=== PATIENT | male | born 1955 | race Caucasian/White ===

== ENCOUNTER 2019-05-01 01:00 | Inpatient (IN) ==
[2019-05-01] MEDS ORDERED: DEXTROSE 10% 250 ML BAG IV STA (01:38)
[2019-05-01] MEDS ORDERED: DEXTROSE 10% 250 ML IV ONE (01:39)
[2019-05-01 02:50] LABS: Basophils % 0.2 % (0.0-0.8); Eosinophils # 0.1 10*3/uL (0.0-0.87); Eosinophils % 0.5 % (0.00-10.9); Hematocrit 29.3 VOL% (42.0-52.0); Immature Granulocytes % 1.8 %; Lymphocytes # 0.6 10*3/uL (1.4-4.0); Lymphocytes % 3.5 % (21.2-54.2); Mean Corpuscular HGB Conc 30.7 GM/DL (32-36); Mean Corpuscular Volume 84.7 FL (87-102); Mean Platelet Volume 9.1 FL (9.6-12.0); Platelet Count 443 T/CUMM (130-400); Red Blood Count 3.46 MC/CUMM (3.8-5.5); White Blood Count 16.5 T/CUMM (4-12)
[2019-05-01] MEDS ORDERED: VANCOMYCIN INJ 1,500 MG in SODIUM CHLORIDE 0.9% 500 ML IV STA (02:59)
[2019-05-01] MEDS ORDERED: CEFEPIME 2,000 MG in SODIUM CHLORIDE 0.9% 100 ML IV STA (02:59)
[2019-05-01 03:09] LABS: Bilirubin,Total 0.7 MG/DL (0.2-1.0); Osmolality,Calculated 285.8 MOS/KG (273-304); Total Protein 6.1 G/DL (6.4-8.3)
[2019-05-01] MEDS ORDERED: ASPIRIN CHEW 81 MG TABLET PO STA (03:15)
[2019-05-01] MEDS ORDERED: CEFEPIME 2,000 MG VIAL ONE (03:20)
[2019-05-01] MEDS ORDERED: VANCOMYCIN 1,000 MG VIAL ONE ×2 (03:20→03:21)
[2019-05-01] MEDS ORDERED: SODIUM CHLORIDE 0.9% 100 ML IV ONE (03:21)
[2019-05-01 03:27] LABS: PT Patient Result 11.1 SECS (9.6-12.2); Partial Thromboplastin Time 26.9 SECS (20.8-36.0)
[2019-05-01] MEDS ORDERED: GLUCAGON 1 MG VIAL IM PRN (03:34)
[2019-05-01 03:36] LABS: Eosinophils 1 % (0-10); Lymphocytes 4 % (20-55); Segmented Neutrophils 90 % (50-85); Total Cells Counted 100
[2019-05-01] MEDS ORDERED: DEXTROSE 10% 250 ML BAG IV PRN (03:36)
[2019-05-01 03:37] LABS: Anisocytosis Slight; Macrocytosis Slight; Platelet Estimate Increased
[2019-05-01] MEDS ORDERED: VANCOMYCIN INJ 2,000 MG in SODIUM CHLORIDE 0.9% 500 ML IV ONE (04:00)
[2019-05-01] MEDS ORDERED: SODIUM CHLORIDE 0.9% 250 ML IV STA (04:36)
[2019-05-01] MEDS ORDERED: SODIUM CHLOR 0.9% KCL 20 MEQ 20 MEQ/1,000 ML BAG IV SCH (07:30)
[2019-05-01 07:33] LABS: Apearance,Urine CLEAR (Clear); Bacteria,Urine Occasional /HPF (Few); Bilirubin,Urine Negative (Negative); Blood, Urine Negative (Negative); Glucose,Urine (UA) Negative (Negative); Hyaline Casts,Urine 1 /LPF (0-3); Ketones,Urine Negative (Negative); Mucus,Urine Occasional /LPF (Occasional); Nitrite,Urine Negative (Negative); Protein,Urine Negative; RBC,Urine 1 /HPF (0-4); Squamous Epithelial Cell,Urine Occasional /HPF (0-10); Urine Color Yellow (Yellow); Urine Specific Gravity 1.011 (1.001-1.035); WBC,Urine <1 /HPF (0-6)
[2019-05-01] MEDS ORDERED: MAGNESIUM HYDROXIDE SUSP 30 ML UDCUP PO PRN (07:39)
[2019-05-01] MEDS ORDERED: ACETAMINOPHEN 325 MG TABLET PO PRN (07:39)
[2019-05-01] MEDS ORDERED: ONDANSETRON 4 MG/2 ML VIAL IV PRN (07:39)
[2019-05-01] MEDS ORDERED: DEXTROSE 50% 25 GM/50 ML VIAL IV PRN (07:39)
[2019-05-01] MEDS: PANTOPRAZOLE 40 MG TABLET PO SCH (09:03)
[2019-05-01] MEDS: DOCUSATE SODIUM 100 MG CAPSULE PO SCH ×2 (09:03→20:22)
[2019-05-01] MEDS: POTASSIUM CHLORIDE RIDER 10 MEQ in PREMIX 1 EACH IV SCH ×2 (09:04→11:25)
[2019-05-01] MEDS: MEROPENEM 500 MG in SODIUM CHLORIDE 0.9% 100 ML IV SCH ×2 (09:04→16:37)
[2019-05-01] MEDS: SODIUM CHLORIDE 0.9% 1,000 ML IV SCH ×2 (11:28→15:53)
[2019-05-01] MEDS ORDERED: MEROPENEM 1,000 MG in SODIUM CHLORIDE 0.9% 100 ML IV SCH (12:00)
[2019-05-01] MEDS ORDERED: MEROPENEM 500 MG in SODIUM CHLORIDE 0.9% 100 ML IV SCH (12:00)
[2019-05-01] MEDS: INSULIN LISPRO 100 UNIT/ML SUBCUT SCH ×2 (13:38→16:38)
[2019-05-01] MEDS: FUROSEMIDE 40 MG TABLET PO SCH (16:37)
[2019-05-01] MEDS: carvediloL 6.25 MG TABLET PO SCH (20:22)
[2019-05-01] MEDS: AMIODARONE 200 MG TABLET PO SCH (20:22)
[2019-05-01] MEDS: GABAPENTIN 100 MG CAPSULE PO SCH (20:22)
[2019-05-01] MEDS ORDERED: lisinopriL 2.5 MG TABLET PO SCH (21:00)
[2019-05-01] MEDS: INSULIN GLARGINE 100 UNIT/ML SUBCUT SCH (21:40)
[2019-05-02] MEDS: MEROPENEM 500 MG in SODIUM CHLORIDE 0.9% 100 ML IV SCH ×4 (00:19→23:29)
[2019-05-02] MEDS ORDERED: VANCOMYCIN INJ 1,250 MG in SODIUM CHLORIDE 0.9% 250 ML IV SCH (04:00)
[2019-05-02] MEDS: SODIUM CHLORIDE 0.9% 1,000 ML IV SCH ×2 (04:47)
[2019-05-02 05:50] LABS: Basophils % 0.2 % (0.0-0.8); Eosinophils # 0.4 10*3/uL (0.0-0.87); Eosinophils % 2.6 % (0.00-10.9); Hematocrit 29.5 VOL% (42.0-52.0); Hemoglobin 9.2 GM/DL (14.0-18.0); Immature Granulocytes % 2.5 %; Immature Granulocytes Absolute 0.42 #; Lymphocytes # 0.9 10*3/uL (1.4-4.0); Lymphocytes % 5.6 % (21.2-54.2); Mean Corpuscular HGB Conc 31.2 GM/DL (32-36); Mean Corpuscular Volume 83.3 FL (87-102); Mean Platelet Volume 9.6 FL (9.6-12.0); Monocytes % 7.6 % (1.7-12.7); Neutrophils % 81.5 % (38.7-73.9); Platelet Count 489 T/CUMM (130-400); Red Blood Count 3.54 MC/CUMM (3.8-5.5); Red Cell Distribution Width 15.4 % (9.3-17.3); White Blood Count 16.7 T/CUMM (4-12)
[2019-05-02] MEDS: INSULIN LISPRO 100 UNIT/ML SUBCUT SCH ×5 (05:55→20:27)
[2019-05-02 06:11] LABS: Risk Ratio 6.21
[2019-05-02 06:17] LABS: Albumin 2.1 G/DL (3.4-5.0); Calcium 8.2 MG/DL (8.5-10.1); Osmolality,Calculated 287.7 MOS/KG (273-304); Total Protein 5.8 G/DL (6.4-8.3)
[2019-05-02] MEDS ORDERED: SIMVASTATIN 40 MG TABLET PO SCH (09:00)
[2019-05-02] MEDS: AMIODARONE 200 MG TABLET PO SCH ×2 (09:17→20:26)
[2019-05-02] MEDS: PRASUGREL 10 MG TABLET PO SCH (09:17)
[2019-05-02] MEDS: carvediloL 6.25 MG TABLET PO SCH ×2 (09:17→20:26)
[2019-05-02] MEDS: FUROSEMIDE 40 MG TABLET PO SCH ×2 (09:17→16:57)
[2019-05-02] MEDS: ASPIRIN CHEW 81 MG TABLET PO SCH (09:17)
[2019-05-02] MEDS: PANTOPRAZOLE 40 MG TABLET PO SCH (09:17)
[2019-05-02] MEDS: DOCUSATE SODIUM 100 MG CAPSULE PO SCH ×2 (09:18→20:26)
[2019-05-02] MEDS: GABAPENTIN 100 MG CAPSULE PO SCH (20:26)
[2019-05-02] MEDS: INSULIN GLARGINE 100 UNIT/ML SUBCUT SCH (20:26)
[2019-05-03 06:04] LABS: Basophils % 0.3 % (0.0-0.8); Eosinophils # 0.4 10*3/uL (0.0-0.87); Eosinophils % 2.4 % (0.00-10.9); Hematocrit 27.8 VOL% (42.0-52.0); Hemoglobin 8.7 GM/DL (14.0-18.0); Immature Granulocytes % 2.5 %; Immature Granulocytes Absolute 0.38 #; Lymphocytes # 0.7 10*3/uL (1.4-4.0); Lymphocytes % 4.4 % (21.2-54.2); Mean Corpuscular HGB Conc 31.3 GM/DL (32-36); Mean Corpuscular Volume 84.2 FL (87-102); Mean Platelet Volume 9.5 FL (9.6-12.0); Monocytes % 6.5 % (1.7-12.7); Neutrophils % 83.9 % (38.7-73.9); Platelet Count 486 T/CUMM (130-400); Red Cell Distribution Width 15.6 % (9.3-17.3); White Blood Count 15.1 T/CUMM (4-12)
[2019-05-03] MEDS: LEVOTHYROXINE 75 MCG TABLET PO SCH (06:12)
[2019-05-03 06:22] LABS: Calcium 8.3 MG/DL (8.5-10.1); Osmolality,Calculated 284.8 MOS/KG (273-304)
[2019-05-03 06:55] LABS: Eosinophils 1 % (0-10); Hypochromasia 1+; Lymphocytes 5 % (20-55); Platelet Estimate Adequate; Segmented Neutrophils 85 % (50-85); Total Cells Counted 100
[2019-05-03] MEDS: INSULIN LISPRO 100 UNIT/ML SUBCUT SCH ×4 (09:29→22:36)
[2019-05-03] MEDS: MEROPENEM 500 MG in SODIUM CHLORIDE 0.9% 100 ML IV SCH ×2 (09:32→15:05)
[2019-05-03] MEDS: FUROSEMIDE 40 MG TABLET PO SCH ×2 (09:32→15:06)
[2019-05-03] MEDS: ASPIRIN CHEW 81 MG TABLET PO SCH (09:33)
[2019-05-03] MEDS: AMIODARONE 200 MG TABLET PO SCH ×2 (09:33→22:33)
[2019-05-03] MEDS: PANTOPRAZOLE 40 MG TABLET PO SCH (09:33)
[2019-05-03] MEDS: PRASUGREL 10 MG TABLET PO SCH (09:33)
[2019-05-03] MEDS: DOCUSATE SODIUM 100 MG CAPSULE PO SCH ×2 (09:33→22:33)
[2019-05-03] MEDS: carvediloL 6.25 MG TABLET PO SCH ×2 (09:34→22:36)
[2019-05-03] MEDS: ENOXAPARIN 30 MG/0.3 ML SYRINGE SUBCUT SCH (09:34)
[2019-05-03] MEDS ORDERED: SIMVASTATIN 40 MG TABLET PO SCH (21:00)
[2019-05-03] MEDS: GABAPENTIN 100 MG CAPSULE PO SCH (22:34)
[2019-05-03] MEDS: INSULIN GLARGINE 100 UNIT/ML SUBCUT SCH (22:36)
[2019-05-04] MEDS: MEROPENEM 500 MG in SODIUM CHLORIDE 0.9% 100 ML IV SCH ×3 (01:23→17:04)
[2019-05-04 05:22] LABS: Basophils % 0.2 % (0.0-0.8); Eosinophils # 0.2 10*3/uL (0.0-0.87); Eosinophils % 1.2 % (0.00-10.9); Hematocrit 28.8 VOL% (42.0-52.0); Immature Granulocytes % 2.6 %; Immature Granulocytes Absolute 0.45 #; Lymphocytes # 1.1 10*3/uL (1.4-4.0); Lymphocytes % 6.3 % (21.2-54.2); Mean Corpuscular HGB Conc 31.3 GM/DL (32-36); Mean Corpuscular Volume 82.8 FL (87-102); Mean Platelet Volume 9.5 FL (9.6-12.0); Monocytes % 7.8 % (1.7-12.7); Neutrophils % 81.9 % (38.7-73.9); Platelet Count 522 T/CUMM (130-400); Red Blood Count 3.48 MC/CUMM (3.8-5.5); Red Cell Distribution Width 15.8 % (9.3-17.3); White Blood Count 17.1 T/CUMM (4-12)
[2019-05-04 05:40] LABS: Albumin 1.7 G/DL (3.4-5.0); Calcium 8.3 MG/DL (8.5-10.1); Osmolality,Calculated 281.8 MOS/KG (273-304); Total Protein 6.1 G/DL (6.4-8.3)
[2019-05-04] MEDS: LEVOTHYROXINE 75 MCG TABLET PO SCH (06:25)
[2019-05-04] MEDS ORDERED: LEVOFLOXACIN INJ 750 MG in PREMIX 1 EACH IV ONE (08:06)
[2019-05-04 09:55] LABS: Hepatitis B Core IgM Quant 0.08 Index; Hepatitis B Surface Ag Quant 0.16 Index; Hepatitis B Surface Ag Result Negative (Negative); Hepatitis C Virus Ab Quant 0.06 Index; Hepatitis C Virus Ab Result Negative (Negative)
[2019-05-04] MEDS: DOCUSATE SODIUM 100 MG CAPSULE PO SCH ×2 (10:42→23:33)
[2019-05-04] MEDS: PANTOPRAZOLE 40 MG TABLET PO SCH (10:42)
[2019-05-04] MEDS: FUROSEMIDE 40 MG TABLET PO SCH ×2 (10:42→17:04)
[2019-05-04] MEDS: ASPIRIN CHEW 81 MG TABLET PO SCH (10:42)
[2019-05-04] MEDS: AMIODARONE 200 MG TABLET PO SCH ×2 (10:42→23:32)
[2019-05-04] MEDS: PRASUGREL 10 MG TABLET PO SCH (10:42)
[2019-05-04] MEDS: INSULIN LISPRO 100 UNIT/ML SUBCUT SCH ×4 (10:43→20:55)
[2019-05-04] MEDS: ENOXAPARIN 30 MG/0.3 ML SYRINGE SUBCUT SCH (10:45)
[2019-05-04] MEDS: APIXABAN 5 MG TABLET PO SCH ×2 (14:33→23:32)
[2019-05-04] MEDS: INSULIN GLARGINE 100 UNIT/ML SUBCUT SCH (20:55)
[2019-05-04] MEDS: GABAPENTIN 100 MG CAPSULE PO SCH (23:32)
[2019-05-05] MEDS: MEROPENEM 500 MG in SODIUM CHLORIDE 0.9% 100 ML IV SCH ×4 (02:18→23:46)
[2019-05-05 05:33] LABS: Basophils % 0.2 % (0.0-0.8); Eosinophils % 0.2 % (0.00-10.9); Hematocrit 28.1 VOL% (42.0-52.0); Immature Granulocytes % 2.2 %; Immature Granulocytes Absolute 0.38 #; Lymphocytes # 0.8 10*3/uL (1.4-4.0); Lymphocytes % 4.7 % (21.2-54.2); Mean Platelet Volume 9.2 FL (9.6-12.0); Monocytes % 7.5 % (1.7-12.7); Neutrophils % 85.2 % (38.7-73.9); Platelet Count 502 T/CUMM (130-400); Red Blood Count 3.47 MC/CUMM (3.8-5.5); Red Cell Distribution Width 16.1 % (9.3-17.3); White Blood Count 16.9 T/CUMM (4-12)
[2019-05-05 05:57] LABS: Calcium 7.9 MG/DL (8.5-10.1); Osmolality,Calculated 286.8 MOS/KG (273-304)
[2019-05-05 06:01] LABS: Band Neutrophils 4 % (0-10); Hypochromasia 1+; Lymphocytes 4 % (20-55); Segmented Neutrophils 84 % (50-85); Total Cells Counted 100
[2019-05-05 06:02] LABS: Microcytosis 1+
[2019-05-05] MEDS: LEVOTHYROXINE 75 MCG TABLET PO SCH (06:49)
[2019-05-05] MEDS: INSULIN LISPRO 100 UNIT/ML SUBCUT SCH ×4 (07:34→20:35)
[2019-05-05] MEDS: PRASUGREL 10 MG TABLET PO SCH (10:22)
[2019-05-05] MEDS: AMIODARONE 200 MG TABLET PO SCH ×2 (10:23→21:54)
[2019-05-05] MEDS: ASPIRIN CHEW 81 MG TABLET PO SCH (10:23)
[2019-05-05] MEDS: PANTOPRAZOLE 40 MG TABLET PO SCH (10:23)
[2019-05-05] MEDS: DOCUSATE SODIUM 100 MG CAPSULE PO SCH ×2 (10:24→20:35)
[2019-05-05] MEDS: FUROSEMIDE 40 MG TABLET PO SCH (10:24)
[2019-05-05] MEDS: LEVOFLOXACIN INJ 500 MG in PREMIX 1 EACH IV SCH (11:26)
[2019-05-05] MEDS: APIXABAN 5 MG TABLET PO SCH ×2 (12:33→21:54)
[2019-05-05] MEDS: traMADol 50 MG TABLET PO PRN (14:00)
[2019-05-05] MEDS ORDERED: SODIUM CHLORIDE 0.9% 250 ML IV ONE (16:51)
[2019-05-05] MEDS: SODIUM CHLORIDE 0.9% 1,000 ML IV SCH (17:26)
[2019-05-05] MEDS: INSULIN GLARGINE 100 UNIT/ML SUBCUT SCH (20:36)
[2019-05-05] MEDS: GABAPENTIN 100 MG CAPSULE PO SCH (21:54)
[2019-05-06 05:30] LABS: Basophils % 0.2 % (0.0-0.8); Eosinophils # 0.1 10*3/uL (0.0-0.87); Eosinophils % 0.6 % (0.00-10.9); Hematocrit 28.2 VOL% (42.0-52.0); Hemoglobin 8.7 GM/DL (14.0-18.0); Immature Granulocytes % 3.3 %; Immature Granulocytes Absolute 0.62 #; Lymphocytes % 5.4 % (21.2-54.2); Mean Corpuscular HGB Conc 30.9 GM/DL (32-36); Mean Corpuscular Volume 82.7 FL (87-102); Mean Platelet Volume 9.3 FL (9.6-12.0); Monocytes % 6.4 % (1.7-12.7); Neutrophils % 84.1 % (38.7-73.9); Platelet Count 482 T/CUMM (130-400); Red Blood Count 3.41 MC/CUMM (3.8-5.5); Red Cell Distribution Width 16.1 % (9.3-17.3)
[2019-05-06 05:50] LABS: Albumin 1.6 G/DL (3.4-5.0); Bilirubin,Total 1.2 MG/DL (0.2-1.0); Calcium 7.8 MG/DL (8.5-10.1); Osmolality,Calculated 289.8 MOS/KG (273-304); Total Protein 5.7 G/DL (6.4-8.3)
[2019-05-06] MEDS: LEVOTHYROXINE 75 MCG TABLET PO SCH (06:01)
[2019-05-06 06:06] LABS: Hypochromasia 1+; Lymphocytes 2 % (20-55); Platelet Estimate Adequate; Segmented Neutrophils 94 % (50-85); Total Cells Counted 100
[2019-05-06 06:07] LABS: Microcytosis 1+
[2019-05-06] MEDS ORDERED: FUROSEMIDE 40 MG TABLET PO SCH (09:00)
[2019-05-06] MEDS: PANTOPRAZOLE 40 MG TABLET PO SCH (10:00)
[2019-05-06] MEDS: AMIODARONE 200 MG TABLET PO SCH ×2 (10:00→21:35)
[2019-05-06] MEDS: PRASUGREL 10 MG TABLET PO SCH (10:00)
[2019-05-06] MEDS: APIXABAN 5 MG TABLET PO SCH (10:00)
[2019-05-06] MEDS: ASPIRIN CHEW 81 MG TABLET PO SCH (10:01)
[2019-05-06] MEDS: INSULIN LISPRO 100 UNIT/ML SUBCUT SCH ×4 (10:35→21:27)
[2019-05-06] MEDS: DOCUSATE SODIUM 100 MG CAPSULE PO SCH ×2 (10:36→22:53)
[2019-05-06] MEDS ORDERED: POTASSIUM CHLORIDE RIDER 10 MEQ in PREMIX 1 EACH IV PRN (11:49)
[2019-05-06] MEDS ORDERED: MAGNESIUM SULF RIDER 2 GM in PREMIX 1 EACH IV PRN (11:49)
[2019-05-06] MEDS: ACETYLCYSTEINE 600 MG CAPSULE PO SCH ×2 (13:19→21:35)
[2019-05-06] MEDS: SODIUM CHLORIDE 0.9% 1,000 ML IV SCH (13:50)
[2019-05-06] MEDS: INSULIN GLARGINE 100 UNIT/ML SUBCUT SCH (21:28)
[2019-05-06] MEDS: GABAPENTIN 100 MG CAPSULE PO SCH (21:35)
[2019-05-07 04:38] LABS: Basophils % 0.2 % (0.0-0.8); Eosinophils # 0.2 10*3/uL (0.0-0.87); Eosinophils % 0.8 % (0.00-10.9); Hematocrit 29.7 VOL% (42.0-52.0); Hemoglobin 9.2 GM/DL (14.0-18.0); Immature Granulocytes % 2.8 %; Immature Granulocytes Absolute 0.55 #; Lymphocytes # 1.1 10*3/uL (1.4-4.0); Lymphocytes % 5.6 % (21.2-54.2); Mean Corpuscular Volume 83.7 FL (87-102); Mean Platelet Volume 9.4 FL (9.6-12.0); Monocytes % 6.1 % (1.7-12.7); Neutrophils % 84.5 % (38.7-73.9); Platelet Count 473 T/CUMM (130-400); Red Blood Count 3.55 MC/CUMM (3.8-5.5); Red Cell Distribution Width 16.7 % (9.3-17.3); White Blood Count 19.7 T/CUMM (4-12)
[2019-05-07 04:47] LABS: INR 1.1; PT Patient Result 11.9 SECS (9.6-12.2)
[2019-05-07 05:06] LABS: Albumin 1.7 G/DL (3.4-5.0); Bilirubin,Total 1.4 MG/DL (0.2-1.0); Calcium 7.6 MG/DL (8.5-10.1); Osmolality,Calculated 291.7 MOS/KG (273-304); Total Protein 5.9 G/DL (6.4-8.3)
[2019-05-07 06:01] LABS: Band Neutrophils 1 % (0-10); Lymphocytes 5 % (20-55); Metamyelocytes 1 %; Segmented Neutrophils 87 % (50-85); Total Cells Counted 100
[2019-05-07 06:02] LABS: Anisocytosis 1+; Hypochromasia 1+; Platelet Estimate Normal; Target Cells 1+
[2019-05-07] MEDS ORDERED: DIAZEPAM 5 MG TABLET PO ONE (06:30)
[2019-05-07] MEDS ORDERED: diphenhydrAMINE CAP 25 MG CAPSULE PO ONE (06:30)
[2019-05-07] MEDS: INSULIN LISPRO 100 UNIT/ML SUBCUT SCH ×4 (08:00→22:36)
[2019-05-07] MEDS: LEVOFLOXACIN INJ 500 MG in PREMIX 1 EACH IV SCH (08:17)
[2019-05-07] MEDS ORDERED: LIDOCAINE 1% 20 ML VIAL ONE (08:21)
[2019-05-07] MEDS ORDERED: HEPARIN/NACL 0.9% 2 UNITS/ML 1,000 ML IV ONE (08:21)
[2019-05-07] MEDS: LEVOTHYROXINE 75 MCG TABLET PO SCH (08:24)
[2019-05-07] MEDS: AMIODARONE 200 MG TABLET PO SCH ×2 (10:33→20:45)
[2019-05-07] MEDS: PANTOPRAZOLE 40 MG TABLET PO SCH (10:33)
[2019-05-07] MEDS: DOCUSATE SODIUM 100 MG CAPSULE PO SCH ×2 (10:33→20:46)
[2019-05-07] MEDS: ACETYLCYSTEINE 600 MG CAPSULE PO SCH ×2 (10:33→20:45)
[2019-05-07] MEDS: ASPIRIN CHEW 81 MG TABLET PO SCH (10:33)
[2019-05-07] MEDS: PRASUGREL 10 MG TABLET PO SCH (10:34)
[2019-05-07] MEDS: SODIUM CHLORIDE 0.9% 1,000 ML IV SCH (10:35)
[2019-05-07] MEDS: APIXABAN 2.5 MG TABLET PO SCH (20:45)
[2019-05-07] MEDS: GABAPENTIN 100 MG CAPSULE PO SCH (20:45)
[2019-05-07] MEDS: INSULIN GLARGINE 100 UNIT/ML SUBCUT SCH (22:36)
[2019-05-08] MEDS: LEVOTHYROXINE 75 MCG TABLET PO SCH (06:42)
[2019-05-08 06:50] LABS: Basophils % 0.2 % (0.0-0.8); Eosinophils # 0.1 10*3/uL (0.0-0.87); Eosinophils % 0.8 % (0.00-10.9); Hematocrit 28.2 VOL% (42.0-52.0); Hemoglobin 8.9 GM/DL (14.0-18.0); Immature Granulocytes % 2.6 %; Immature Granulocytes Absolute 0.47 #; Lymphocytes # 1.1 10*3/uL (1.4-4.0); Lymphocytes % 6.1 % (21.2-54.2); Mean Corpuscular HGB Conc 31.6 GM/DL (32-36); Mean Platelet Volume 9.4 FL (9.6-12.0); Monocytes % 5.9 % (1.7-12.7); NRBC # 0.02 10*3/uL; Neutrophils % 84.4 % (38.7-73.9); Platelet Count 449 T/CUMM (130-400); Red Blood Count 3.48 MC/CUMM (3.8-5.5); Red Cell Distribution Width 16.8 % (9.3-17.3); White Blood Count 17.8 T/CUMM (4-12)
[2019-05-08 07:22] LABS: Albumin 1.5 G/DL (3.4-5.0); Bilirubin,Total 1.5 MG/DL (0.2-1.0); Calcium 7.9 MG/DL (8.5-10.1); Osmolality,Calculated 289.7 MOS/KG (273-304); Total Protein 5.8 G/DL (6.4-8.3)
[2019-05-08] MEDS: INSULIN LISPRO 100 UNIT/ML SUBCUT SCH ×4 (09:43→21:32)
[2019-05-08] MEDS: PANTOPRAZOLE 40 MG TABLET PO SCH (09:43)
[2019-05-08] MEDS: ASPIRIN CHEW 81 MG TABLET PO SCH (09:43)
[2019-05-08] MEDS: AMIODARONE 200 MG TABLET PO SCH ×2 (09:43→21:31)
[2019-05-08] MEDS: APIXABAN 2.5 MG TABLET PO SCH ×2 (09:43→21:31)
[2019-05-08] MEDS: PRASUGREL 10 MG TABLET PO SCH (09:44)
[2019-05-08] MEDS: DOCUSATE SODIUM 100 MG CAPSULE PO SCH ×2 (09:44→21:32)
[2019-05-08] MEDS: SODIUM CHLORIDE 0.9% 1,000 ML IV SCH (09:47)
[2019-05-08] MEDS: GABAPENTIN 100 MG CAPSULE PO SCH (21:31)
[2019-05-08] MEDS: INSULIN GLARGINE 100 UNIT/ML SUBCUT SCH (21:32)
[2019-05-08] MEDS: traMADol 50 MG TABLET PO PRN (21:33)
[2019-05-09] MEDS: SODIUM CHLORIDE 0.9% 1,000 ML IV SCH (03:17)
[2019-05-09 05:53] LABS: Calcium 7.8 MG/DL (8.5-10.1); Osmolality,Calculated 288.4 MOS/KG (273-304)
[2019-05-09] MEDS: LEVOTHYROXINE 75 MCG TABLET PO SCH (05:54)
[2019-05-09] MEDS: INSULIN LISPRO 100 UNIT/ML SUBCUT SCH ×4 (09:15→20:42)
[2019-05-09] MEDS: AMIODARONE 200 MG TABLET PO SCH ×2 (09:41→20:41)
[2019-05-09] MEDS: ASPIRIN CHEW 81 MG TABLET PO SCH (09:41)
[2019-05-09] MEDS: FUROSEMIDE 40 MG TABLET PO SCH ×2 (09:41→16:50)
[2019-05-09] MEDS: APIXABAN 5 MG TABLET PO SCH ×2 (09:41→20:41)
[2019-05-09] MEDS: LEVOFLOXACIN INJ 500 MG in PREMIX 1 EACH IV SCH (09:42)
[2019-05-09] MEDS: DOCUSATE SODIUM 100 MG CAPSULE PO SCH ×3 (09:42→20:43)
[2019-05-09] MEDS: PANTOPRAZOLE 40 MG TABLET PO SCH (09:42)
[2019-05-09] MEDS: INSULIN GLARGINE 100 UNIT/ML SUBCUT SCH (20:40)
[2019-05-09] MEDS: GABAPENTIN 100 MG CAPSULE PO SCH (20:41)
[2019-05-10 05:28] LABS: Basophils # 0.1 10*3/uL (0.0-0.2); Basophils % 0.3 % (0.0-0.8); Eosinophils # 0.6 10*3/uL (0.0-0.87); Eosinophils % 3.9 % (0.00-10.9); Hemoglobin 9.8 GM/DL (14.0-18.0); Immature Granulocytes Absolute 0.83 #; Lymphocytes # 1.2 10*3/uL (1.4-4.0); Lymphocytes % 7.1 % (21.2-54.2); Mean Corpuscular HGB Conc 30.6 GM/DL (32-36); Mean Corpuscular Volume 82.7 FL (87-102); Mean Platelet Volume 9.3 FL (9.6-12.0); Monocytes % 5.2 % (1.7-12.7); NRBC # 0.02 10*3/uL; Neutrophils % 78.5 % (38.7-73.9); Platelet Count 475 T/CUMM (130-400); Red Blood Count 3.87 MC/CUMM (3.8-5.5); Red Cell Distribution Width 16.8 % (9.3-17.3); White Blood Count 16.6 T/CUMM (4-12)
[2019-05-10 05:51] LABS: Calcium 7.9 MG/DL (8.5-10.1); Osmolality,Calculated 292.1 MOS/KG (273-304)
[2019-05-10 05:52] LABS: Eosinophils 6 % (0-10); Hypochromasia 1+; Lymphocytes 9 % (20-55); Platelet Estimate Adequate; Segmented Neutrophils 81 % (50-85); Total Cells Counted 100
[2019-05-10 05:54] LABS: Albumin 1.8 G/DL (3.4-5.0); Bilirubin,Direct 0.89 MG/DL (0.0-0.20); Bilirubin,Indirect 0.7 MG/DL (0.0-1.0); Bilirubin,Total 1.6 MG/DL (0.2-1.0); Total Protein 6.1 G/DL (6.4-8.3)
[2019-05-10] MEDS: LEVOTHYROXINE 75 MCG TABLET PO SCH (06:31)
[2019-05-10] MEDS: AMIODARONE 200 MG TABLET PO SCH ×2 (08:11→20:51)
[2019-05-10] MEDS: DOCUSATE SODIUM 100 MG CAPSULE PO SCH ×2 (08:11→20:50)
[2019-05-10] MEDS: FUROSEMIDE 40 MG TABLET PO SCH (08:11)
[2019-05-10] MEDS: APIXABAN 5 MG TABLET PO SCH ×2 (08:11→20:51)
[2019-05-10] MEDS: PANTOPRAZOLE 40 MG TABLET PO SCH (08:11)
[2019-05-10] MEDS: ASPIRIN CHEW 81 MG TABLET PO SCH (08:11)
[2019-05-10] MEDS: INSULIN LISPRO 100 UNIT/ML SUBCUT SCH ×4 (09:08→20:52)
[2019-05-10] MEDS ORDERED: FUROSEMIDE 20 MG TABLET PO SCH (16:00)
[2019-05-10] MEDS ORDERED: diphenhydrAMINE CAP 25 MG CAPSULE PO PRN (20:07)
[2019-05-10] MEDS: INSULIN GLARGINE 100 UNIT/ML SUBCUT SCH (20:51)
[2019-05-10] MEDS: GABAPENTIN 100 MG CAPSULE PO SCH (20:51)
[2019-05-11 04:49] LABS: Albumin 1.6 G/DL (3.4-5.0); Bilirubin,Direct 0.78 MG/DL (0.0-0.20); Bilirubin,Indirect 1.3 MG/DL (0.0-1.0); Bilirubin,Total 2.1 MG/DL (0.2-1.0); Total Protein 5.9 G/DL (6.4-8.3)
[2019-05-11] MEDS: LEVOTHYROXINE 75 MCG TABLET PO SCH (06:13)
[2019-05-11 07:34] LABS: Calcium 7.7 MG/DL (8.5-10.1); Osmolality,Calculated 287.4 MOS/KG (273-304)
[2019-05-11] MEDS: INSULIN LISPRO 100 UNIT/ML SUBCUT SCH (07:57)
[2019-05-11] MEDS: LEVOFLOXACIN INJ 500 MG in PREMIX 1 EACH IV SCH (08:05)
[2019-05-11] MEDS: AMIODARONE 200 MG TABLET PO SCH (08:24)
[2019-05-11] MEDS: ASPIRIN CHEW 81 MG TABLET PO SCH (08:24)
[2019-05-11] MEDS: APIXABAN 5 MG TABLET PO SCH (08:24)
[2019-05-11] MEDS: PANTOPRAZOLE 40 MG TABLET PO SCH (08:24)
[2019-05-11] MEDS: DOCUSATE SODIUM 100 MG CAPSULE PO SCH (08:24)
[2019-05-11 08:52] VITALS: BP 115/68
[2019-05-11] MEDS ORDERED: FUROSEMIDE 40 MG TABLET PO SCH (09:00)
[2019-05-11] MEDS ORDERED: POTASSIUM CHLORIDE 20 MEQ TABLET PO ONE (11:36)
[2019-05-11] MEDS ORDERED: APIXABAN 2.5 MG TABLET PO SCH (21:00)
[2019-05-12] MEDS ORDERED: AMIODARONE 200 MG TABLET PO SCH (09:00)
[2019-05-12] MEDS ORDERED: POTASSIUM CHLORIDE 20 MEQ TABLET PO SCH (09:00)
[2019-05-12 13:16] LABS: Smooth Muscle Antibody Negative (Negative)
[2019-05-12 13:56] LABS: Mitochondrial Antibody (M2) <0.1 U
== END 2019-05-11 13:07 | disposition home or self-care (01) | DRG 286 ==
LOC: EDUNIT# → EDBD → N.ED 01:00 → N.EDINP 03:30 → N.TELES 04:21
PROVIDERS: ADMIT Internal Medicine; ATTEND Internal Medicine

== ENCOUNTER 2020-01-05 07:47 | Inpatient (IN) ==
[2020-01-05] MEDS ORDERED: FUROSEMIDE 40 MG/4 ML VIAL IV STA (08:24)
[2020-01-05 08:43] LABS: Basophils % 0.3 % (0.0-0.8); Eosinophils # 0.4 10*3/uL (0.0-0.87); Hematocrit 30.9 VOL% (42.0-52.0); Hemoglobin 9.6 GM/DL (14.0-18.0); Immature Granulocytes Absolute 0.14 #; Lymphocytes # 0.9 10*3/uL (1.4-4.0); Lymphocytes % 6.5 % (21.2-54.2); Mean Corpuscular HGB Conc 31.1 GM/DL (32-36); Mean Corpuscular Volume 86.8 FL (87-102); Mean Platelet Volume 9.3 FL (9.6-12.0); Monocytes % 5.1 % (1.7-12.7); Neutrophils % 84.1 % (38.7-73.9); Platelet Count 334 T/CUMM (130-400); Red Blood Count 3.56 MC/CUMM (3.8-5.5); Red Cell Distribution Width 17.4 % (9.3-17.3); White Blood Count 14.3 T/CUMM (4-12)
[2020-01-05 09:19] LABS: Albumin 2.8 G/DL (3.4-5.0); Bilirubin,Total 0.8 MG/DL (0.2-1.0); Calcium 8.5 MG/DL (8.5-10.1); Osmolality,Calculated 283.4 MOS/KG (273-304); Total Protein 7.3 G/DL (6.4-8.3)
[2020-01-05] MEDS ORDERED: DEXTROSE 50% 25 GM/50 ML VIAL IV STA (10:22)
[2020-01-05] MEDS ORDERED: GLUCAGON 1 MG VIAL IM PRN (11:30)
[2020-01-05] MEDS ORDERED: ONDANSETRON 4 MG/2 ML VIAL IV PRN (11:30)
[2020-01-05] MEDS ORDERED: ACETAMINOPHEN 325 MG TABLET PO PRN (11:30)
[2020-01-05] MEDS ORDERED: DEXTROSE 50% 25 GM/50 ML VIAL IV PRN ×2 (11:30)
[2020-01-05] MEDS ORDERED: SODIUM CHLORIDE 0.9% 1,000 ML IV SCH (13:00)
[2020-01-05] MEDS: SODIUM CHLORIDE 0.9% 1,000 ML IV SCH (14:12)
[2020-01-05] MEDS: ALBUTEROL 0.63 MG/3 ML NEB RESP TX SCH ×2 (16:10→19:25)
[2020-01-05] MEDS: FUROSEMIDE 40 MG/4 ML VIAL IV SCH (17:04)
[2020-01-05] MEDS: cefTRIAXone 500 MG in SYRINGE 1 EACH IV SCH (17:05)
[2020-01-05] MEDS: INSULIN LISPRO 100 UNIT/ML SUBCUT SCH ×2 (17:07→21:03)
[2020-01-05] MEDS ORDERED: ROSUVASTATIN 20 MG TABLET PO SCH (21:00)
[2020-01-05] MEDS: SIMVASTATIN 40 MG TABLET PO SCH (21:02)
[2020-01-05] MEDS: AMIODARONE 200 MG TABLET PO SCH (21:02)
[2020-01-05] MEDS: DOCUSATE SODIUM 100 MG CAPSULE PO SCH (21:02)
[2020-01-06] MEDS: ALBUTEROL 0.63 MG/3 ML NEB RESP TX SCH ×4 (00:45→19:46)
[2020-01-06] MEDS: SODIUM CHLORIDE 0.9% 1,000 ML IV SCH (04:51)
[2020-01-06] MEDS: PANTOPRAZOLE 40 MG TABLET PO SCH (05:45)
[2020-01-06 05:53] LABS: Basophils % 0.3 % (0.0-0.8); Eosinophils # 0.4 10*3/uL (0.0-0.87); Eosinophils % 3.1 % (0.00-10.9); Hematocrit 28.5 VOL% (42.0-52.0); Hemoglobin 8.6 GM/DL (14.0-18.0); Immature Granulocytes % 0.8 %; Lymphocytes # 1.3 10*3/uL (1.4-4.0); Lymphocytes % 9.8 % (21.2-54.2); Mean Corpuscular HGB Conc 30.2 GM/DL (32-36); Mean Corpuscular Volume 86.6 FL (87-102); Mean Platelet Volume 9.3 FL (9.6-12.0); Monocytes % 7.5 % (1.7-12.7); Neutrophils % 78.5 % (38.7-73.9); Platelet Count 284 T/CUMM (130-400); Red Blood Count 3.29 MC/CUMM (3.8-5.5); Red Cell Distribution Width 17.3 % (9.3-17.3); White Blood Count 13.2 T/CUMM (4-12)
[2020-01-06 06:14] LABS: Osmolality,Calculated 288.3 MOS/KG (273-304)
[2020-01-06 06:58] LABS: Albumin 2.3 G/DL (3.4-5.0); Bilirubin,Direct 0.23 MG/DL (0.0-0.20); Bilirubin,Indirect 0.3 MG/DL (0.0-1.0); Bilirubin,Total 0.5 MG/DL (0.2-1.0); Risk Ratio 2.55; Thyroid Stimulating Hormone 8.05 uIU/ml (0.358-3.74); Total Protein 6.9 G/DL (6.4-8.3); VLDL CHOLESTEROL 22.8 MG/DL
[2020-01-06] MEDS ORDERED: cefTRIAXone 500 MG in SYRINGE 1 EACH IV SCH (09:00)
[2020-01-06] MEDS ORDERED: FUROSEMIDE 40 MG/4 ML VIAL IV SCH (09:00)
[2020-01-06] MEDS: INSULIN LISPRO 100 UNIT/ML SUBCUT SCH ×4 (09:40→23:09)
[2020-01-06] MEDS: FUROSEMIDE 40 MG/4 ML VIAL IV SCH ×2 (09:47→16:34)
[2020-01-06] MEDS: ASPIRIN CHEW 81 MG TABLET PO SCH (09:47)
[2020-01-06] MEDS: AMIODARONE 200 MG TABLET PO SCH ×2 (09:48→22:19)
[2020-01-06] MEDS: DOCUSATE SODIUM 100 MG CAPSULE PO SCH ×2 (09:48→22:19)
[2020-01-06] MEDS: cefTRIAXone 500 MG in SYRINGE 1 EACH IV SCH (10:30)
[2020-01-06] MEDS ORDERED: LEVOTHYROXINE 25 MCG TABLET PO ONE (14:45)
[2020-01-06] MEDS: SIMETHICONE CHEW 125 MG TABLET PO PRN (14:49)
[2020-01-06] MEDS: SODIUM CHLORIDE 0.45% 1,000 ML IV SCH (15:44)
[2020-01-06] MEDS: SIMVASTATIN 40 MG TABLET PO SCH (22:19)
[2020-01-07] MEDS: ALBUTEROL 0.63 MG/3 ML NEB RESP TX SCH ×4 (01:37→19:35)
[2020-01-07 05:27] LABS: Basophils # 0.1 10*3/uL (0.0-0.2); Basophils % 0.5 % (0.0-0.8); Eosinophils # 0.5 10*3/uL (0.0-0.87); Eosinophils % 3.7 % (0.00-10.9); Hematocrit 28.3 VOL% (42.0-52.0); Hemoglobin 8.8 GM/DL (14.0-18.0); Immature Granulocytes % 0.7 %; Lymphocytes # 1.1 10*3/uL (1.4-4.0); Mean Corpuscular HGB Conc 31.1 GM/DL (32-36); Mean Platelet Volume 9.3 FL (9.6-12.0); Monocytes % 9.1 % (1.7-12.7); Platelet Count 278 T/CUMM (130-400); Red Blood Count 3.29 MC/CUMM (3.8-5.5); Red Cell Distribution Width 17.2 % (9.3-17.3); White Blood Count 13.9 T/CUMM (4-12)
[2020-01-07 05:42] LABS: Calcium 8.1 MG/DL (8.5-10.1); Osmolality,Calculated 287.7 MOS/KG (273-304)
[2020-01-07 05:47] LABS: Albumin 2.5 G/DL (3.4-5.0); Bilirubin,Direct 0.17 MG/DL (0.0-0.20); Bilirubin,Indirect 1.1 MG/DL (0.0-1.0); Bilirubin,Total 1.3 MG/DL (0.2-1.0); Total Protein 6.9 G/DL (6.4-8.3)
[2020-01-07] MEDS: PANTOPRAZOLE 40 MG TABLET PO SCH (06:14)
[2020-01-07] MEDS: LEVOTHYROXINE 125 MCG TABLET PO SCH (06:15)
[2020-01-07] MEDS ORDERED: LEVOTHYROXINE 25 MCG TABLET PO SCH (06:30)
[2020-01-07] MEDS: POLYETHYLENE GLYCOL POWDER 17 GM PACK PO SCH (08:56)
[2020-01-07] MEDS: INSULIN LISPRO 100 UNIT/ML SUBCUT SCH ×4 (08:57→22:16)
[2020-01-07] MEDS: CETIRIZINE 10 MG TABLET PO SCH (08:58)
[2020-01-07] MEDS: DOCUSATE SODIUM 100 MG CAPSULE PO SCH ×2 (08:58→22:18)
[2020-01-07] MEDS: ASPIRIN CHEW 81 MG TABLET PO SCH (08:58)
[2020-01-07] MEDS: AMIODARONE 200 MG TABLET PO SCH ×2 (08:58→22:18)
[2020-01-07] MEDS: cefTRIAXone 500 MG in SYRINGE 1 EACH IV SCH (09:00)
[2020-01-07] MEDS: FUROSEMIDE 40 MG/4 ML VIAL IV SCH ×2 (09:00→16:31)
[2020-01-07] MEDS: SODIUM CHLORIDE 0.45% 1,000 ML IV SCH (11:45)
[2020-01-07] MEDS: SIMETHICONE CHEW 125 MG TABLET PO PRN (11:46)
[2020-01-07] MEDS ORDERED: POLYETHYLENE GLYCOL POWDER 17 GM PACK PO SCH (13:30)
[2020-01-07] MEDS: SIMVASTATIN 40 MG TABLET PO SCH (22:18)
[2020-01-08] MEDS: ALBUTEROL 0.63 MG/3 ML NEB RESP TX SCH ×4 (01:08→19:50)
[2020-01-08 03:57] LABS: Basophils # 0.1 10*3/uL (0.0-0.2); Basophils % 0.4 % (0.0-0.8); Eosinophils # 0.7 10*3/uL (0.0-0.87); Eosinophils % 5.3 % (0.00-10.9); Hematocrit 27.7 VOL% (42.0-52.0); Hemoglobin 8.6 GM/DL (14.0-18.0); Immature Granulocytes % 0.5 %; Immature Granulocytes Absolute 0.06 #; Lymphocytes # 1.3 10*3/uL (1.4-4.0); Lymphocytes % 10.1 % (21.2-54.2); Mean Corpuscular Volume 84.7 FL (87-102); Mean Platelet Volume 9.4 FL (9.6-12.0); Monocytes % 9.6 % (1.7-12.7); Neutrophils % 74.1 % (38.7-73.9); Platelet Count 255 T/CUMM (130-400); Red Blood Count 3.27 MC/CUMM (3.8-5.5); Red Cell Distribution Width 17.1 % (9.3-17.3); White Blood Count 12.4 T/CUMM (4-12)
[2020-01-08] MEDS: LEVOTHYROXINE 125 MCG TABLET PO SCH (06:08)
[2020-01-08] MEDS: PANTOPRAZOLE 40 MG TABLET PO SCH (06:08)
[2020-01-08] MEDS: INSULIN LISPRO 100 UNIT/ML SUBCUT SCH ×4 (08:33→22:35)
[2020-01-08] MEDS: ASPIRIN CHEW 81 MG TABLET PO SCH (08:34)
[2020-01-08] MEDS: AMIODARONE 200 MG TABLET PO SCH ×2 (08:34→22:37)
[2020-01-08] MEDS: FUROSEMIDE 40 MG/4 ML VIAL IV SCH ×2 (08:34→16:15)
[2020-01-08] MEDS: DOCUSATE SODIUM 100 MG CAPSULE PO SCH ×2 (08:34→22:36)
[2020-01-08] MEDS: CETIRIZINE 10 MG TABLET PO SCH (08:34)
[2020-01-08] MEDS: POLYETHYLENE GLYCOL POWDER 17 GM PACK PO SCH (08:35)
[2020-01-08] MEDS: cefTRIAXone 500 MG in SYRINGE 1 EACH IV SCH (08:36)
[2020-01-08] MEDS ORDERED: LIDOCAINE 1%/EPI INJ 20 ML VIAL MISC INJ ONE ×2 (11:11→11:30)
[2020-01-08 11:20] LABS: Calcium 8.3 MG/DL (8.5-10.1); Osmolality,Calculated 288.3 MOS/KG (273-304)
[2020-01-08] MEDS: NEOMYCIN/POLYMYXIN/BACITRACIN OINT 0.9 GM PACK TOP SCH (16:16)
[2020-01-08] MEDS: SIMVASTATIN 40 MG TABLET PO SCH (22:36)
[2020-01-09] MEDS: ALBUTEROL 0.63 MG/3 ML NEB RESP TX SCH ×4 (00:50→20:02)
[2020-01-09] MEDS: PANTOPRAZOLE 40 MG TABLET PO SCH (05:40)
[2020-01-09] MEDS: LEVOTHYROXINE 125 MCG TABLET PO SCH (05:40)
[2020-01-09 05:52] LABS: Calcium 7.9 MG/DL (8.5-10.1); Osmolality,Calculated 293.1 MOS/KG (273-304)
[2020-01-09] MEDS: INSULIN LISPRO 100 UNIT/ML SUBCUT SCH ×4 (08:37→21:52)
[2020-01-09] MEDS: POLYETHYLENE GLYCOL POWDER 17 GM PACK PO SCH (08:38)
[2020-01-09] MEDS: CETIRIZINE 10 MG TABLET PO SCH (08:38)
[2020-01-09] MEDS: NEOMYCIN/POLYMYXIN/BACITRACIN OINT 0.9 GM PACK TOP SCH (08:38)
[2020-01-09] MEDS: FUROSEMIDE 40 MG/4 ML VIAL IV SCH ×2 (08:38→16:14)
[2020-01-09] MEDS: AMIODARONE 200 MG TABLET PO SCH ×2 (08:38→21:52)
[2020-01-09] MEDS: ASPIRIN CHEW 81 MG TABLET PO SCH (08:38)
[2020-01-09] MEDS: cefTRIAXone 500 MG in SYRINGE 1 EACH IV SCH (08:38)
[2020-01-09] MEDS: DOCUSATE SODIUM 100 MG CAPSULE PO SCH ×2 (08:38→21:51)
[2020-01-09] MEDS ORDERED: SIMVASTATIN 40 MG TABLET PO SCH (13:00)
[2020-01-09] MEDS: carvediloL 6.25 MG TABLET PO SCH (17:30)
[2020-01-09] MEDS: SIMVASTATIN 40 MG TABLET PO SCH (21:52)
[2020-01-10] MEDS: ALBUTEROL 0.63 MG/3 ML NEB RESP TX SCH ×2 (02:03→07:32)
[2020-01-10 05:56] LABS: Basophils # 0.1 10*3/uL (0.0-0.2); Basophils % 0.4 % (0.0-0.8); Eosinophils # 0.6 10*3/uL (0.0-0.87); Eosinophils % 5.5 % (0.00-10.9); Hematocrit 27.8 VOL% (42.0-52.0); Hemoglobin 8.6 GM/DL (14.0-18.0); Immature Granulocytes % 0.7 %; Immature Granulocytes Absolute 0.08 #; Lymphocytes # 1.1 10*3/uL (1.4-4.0); Lymphocytes % 9.2 % (21.2-54.2); Mean Corpuscular HGB Conc 30.9 GM/DL (32-36); Mean Corpuscular Volume 85.5 FL (87-102); Mean Platelet Volume 9.5 FL (9.6-12.0); Monocytes % 9.3 % (1.7-12.7); Neutrophils % 74.9 % (38.7-73.9); Platelet Count 217 T/CUMM (130-400); Red Blood Count 3.25 MC/CUMM (3.8-5.5); Red Cell Distribution Width 17.3 % (9.3-17.3); White Blood Count 11.6 T/CUMM (4-12)
[2020-01-10 06:12] LABS: Calcium 8.3 MG/DL (8.5-10.1); Osmolality,Calculated 290.1 MOS/KG (273-304)
[2020-01-10] MEDS: PANTOPRAZOLE 40 MG TABLET PO SCH (06:38)
[2020-01-10] MEDS: LEVOTHYROXINE 125 MCG TABLET PO SCH (06:38)
[2020-01-10] MEDS: INSULIN LISPRO 100 UNIT/ML SUBCUT SCH (07:51)
[2020-01-10 08:04] VITALS: BP 111/67
[2020-01-10] MEDS: NEOMYCIN/POLYMYXIN/BACITRACIN OINT 0.9 GM PACK TOP SCH (08:44)
[2020-01-10] MEDS: DOCUSATE SODIUM 100 MG CAPSULE PO SCH (08:44)
[2020-01-10] MEDS: ASPIRIN CHEW 81 MG TABLET PO SCH (08:44)
[2020-01-10] MEDS: CETIRIZINE 10 MG TABLET PO SCH (08:44)
[2020-01-10] MEDS: AMIODARONE 200 MG TABLET PO SCH (08:44)
[2020-01-10] MEDS: carvediloL 6.25 MG TABLET PO SCH (08:44)
[2020-01-10] MEDS: POLYETHYLENE GLYCOL POWDER 17 GM PACK PO SCH (08:45)
[2020-01-10] MEDS: cefTRIAXone 500 MG in SYRINGE 1 EACH IV SCH (08:45)
[2020-01-10] MEDS: FUROSEMIDE 40 MG/4 ML VIAL IV SCH (08:45)
== END 2020-01-10 11:47 | disposition home or self-care (01) | DRG 291 ==
LOC: N.EDINP 07:47 → N.ED 07:47 → N.EDINP 11:35 → N.5E 12:14
PROVIDERS: ADMIT Internal Medicine; ATTEND Internal Medicine

== ENCOUNTER 2020-01-20 08:03 | Inpatient (IN) ==
[2020-01-20] MEDS ORDERED: ONDANSETRON 4 MG/2 ML VIAL IV PRN (08:50)
[2020-01-20] MEDS ORDERED: GLUCAGON 1 MG VIAL IM PRN (08:55)
[2020-01-20] MEDS ORDERED: DEXTROSE 50% 25 GM/50 ML VIAL IV PRN (08:55)
[2020-01-20 10:58] LABS: Basophils % 0.2 % (0.0-0.8); Eosinophils % 0.2 % (0.00-10.9); Hematocrit 31.6 VOL% (42.0-52.0); Hemoglobin 10.2 GM/DL (14.0-18.0); Immature Granulocytes % 0.7 %; Immature Granulocytes Absolute 0.08 #; Lymphocytes # 0.9 10*3/uL (1.4-4.0); Lymphocytes % 7.9 % (21.2-54.2); Mean Corpuscular HGB Conc 32.3 GM/DL (32-36); Mean Corpuscular Volume 82.9 FL (87-102); Monocytes % 6.3 % (1.7-12.7); Neutrophils % 84.7 % (38.7-73.9); Platelet Count 292 T/CUMM (130-400); Red Blood Count 3.81 MC/CUMM (3.8-5.5); Red Cell Distribution Width 16.8 % (9.3-17.3); White Blood Count 10.8 T/CUMM (4-12)
[2020-01-20 11:23] LABS: Albumin 2.6 G/DL (3.4-5.0); Bilirubin,Total 0.9 MG/DL (0.2-1.0); Calcium 8.3 MG/DL (8.5-10.1); Osmolality,Calculated 282.2 MOS/KG (273-304); Total Protein 7.5 G/DL (6.4-8.3)
[2020-01-20] MEDS ORDERED: ONDANSETRON 4 MG TABLET PO PRN (12:27)
[2020-01-20 12:30] LABS: Anisocytosis 1+; Band Neutrophils 12 % (0-10); Lymphocytes 10 % (20-55); Platelet Estimate Normal; Segmented Neutrophils 72 % (50-85); Target Cells Few; Total Cells Counted 100
[2020-01-20] MEDS: DOCUSATE SODIUM 100 MG CAPSULE PO SCH ×2 (13:16→21:37)
[2020-01-20] MEDS: PANTOPRAZOLE 40 MG TABLET PO SCH (13:16)
[2020-01-20] MEDS: INSULIN LISPRO 100 UNIT/ML SUBCUT SCH ×3 (14:00→21:37)
[2020-01-20] MEDS: SODIUM CHLORIDE 0.9% 1,000 ML IV SCH (14:19)
[2020-01-20] MEDS: LEVOFLOXACIN INJ 500 MG in PREMIX 1 EACH IV SCH (14:19)
[2020-01-20] MEDS ORDERED: ALBUTEROL/IPRATROPIUM 3 ML NEB RESP TX PRN (18:07)
[2020-01-20] MEDS: carvediloL 6.25 MG TABLET PO SCH (18:11)
[2020-01-20] MEDS: INSULIN GLARGINE 100 UNIT/ML SUBCUT SCH (18:11)
[2020-01-20] MEDS: FUROSEMIDE 40 MG TABLET PO SCH (18:11)
[2020-01-20] MEDS: ACETAMINOPHEN 325 MG TABLET PO PRN (18:13)
[2020-01-20 18:53] LABS: Bacteria,Urine Occasional /HPF (Few); Bilirubin,Urine Negative (Negative); Blood, Urine Small mg/dL (Negative); Glucose,Urine (UA) Negative (Negative); Hyaline Casts,Urine 11 /LPF (0-3); Ketones,Urine Negative (Negative); Mucus,Urine Occasional /LPF (Occasional); Nitrite,Urine Negative (Negative); Protein,Urine Negative; RBC,Urine 2 /HPF (0-4); Squamous Epithelial Cell,Urine Occasional /HPF (0-10); Urine Appearance CLEAR (Clear); Urine Color Yellow (Yellow); Urine Specific Gravity 1.013 (1.001-1.035); Urine Urobilinogen < 2.0 EU/DL (0.2-1.0); WBC,Urine 2 /HPF (0-6)
[2020-01-20] MEDS: ENOXAPARIN 30 MG/0.3 ML SYRINGE SUBCUT SCH (21:37)
[2020-01-20] MEDS: AMIODARONE 200 MG TABLET PO SCH (21:37)
[2020-01-20] MEDS ORDERED: ALBUTEROL/IPRATROPIUM 3 ML NEB RESP TX SCH (23:00)
[2020-01-21 03:55] LABS: Basophils % 0.2 % (0.0-0.8); Eosinophils # 0.1 10*3/uL (0.0-0.87); Eosinophils % 0.5 % (0.00-10.9); Hematocrit 28.8 VOL% (42.0-52.0); Hemoglobin 9.1 GM/DL (14.0-18.0); Immature Granulocytes % 1.1 %; Immature Granulocytes Absolute 0.11 #; Lymphocytes # 0.9 10*3/uL (1.4-4.0); Lymphocytes % 8.5 % (21.2-54.2); Mean Corpuscular HGB Conc 31.6 GM/DL (32-36); Mean Corpuscular Volume 83.2 FL (87-102); Mean Platelet Volume 9.2 FL (9.6-12.0); Monocytes % 5.7 % (1.7-12.7); Platelet Count 242 T/CUMM (130-400); Red Blood Count 3.46 MC/CUMM (3.8-5.5); Red Cell Distribution Width 16.7 % (9.3-17.3); White Blood Count 10.2 T/CUMM (4-12)
[2020-01-21 04:17] LABS: Band Neutrophils 2 % (0-10); Bilirubin,Total 1.5 MG/DL (0.2-1.0); Calcium 7.4 MG/DL (8.5-10.1); Lymphocytes 4 % (20-55); Osmolality,Calculated 287.7 MOS/KG (273-304); Platelet Estimate Normal; Segmented Neutrophils 91 % (50-85); Total Cells Counted 100; Total Protein 6.1 G/DL (6.4-8.3)
[2020-01-21 04:18] LABS: Hypochromasia Slight; Microcytosis Slight
[2020-01-21] MEDS: SODIUM CHLORIDE 0.9% 1,000 ML IV SCH ×2 (05:52→16:41)
[2020-01-21] MEDS: LEVOTHYROXINE 125 MCG TABLET PO SCH (06:32)
[2020-01-21] MEDS: AMIODARONE 200 MG TABLET PO SCH ×2 (08:49→20:52)
[2020-01-21] MEDS: carvediloL 6.25 MG TABLET PO SCH ×2 (08:49→16:45)
[2020-01-21] MEDS: PANTOPRAZOLE 40 MG TABLET PO SCH (08:49)
[2020-01-21] MEDS: FUROSEMIDE 40 MG TABLET PO SCH ×2 (08:49→16:46)
[2020-01-21] MEDS: INSULIN LISPRO 100 UNIT/ML SUBCUT SCH ×4 (08:49→20:52)
[2020-01-21] MEDS: ASPIRIN CHEW 81 MG TABLET PO SCH (08:49)
[2020-01-21] MEDS: DOCUSATE SODIUM 100 MG CAPSULE PO SCH ×2 (08:50→23:33)
[2020-01-21] MEDS: ACETAMINOPHEN 325 MG TABLET PO PRN (08:55)
[2020-01-21] MEDS: POTASSIUM CHLORIDE 20 MEQ TABLET PO PRN ×3 (11:53→16:41)
[2020-01-21] MEDS: LEVOFLOXACIN INJ 500 MG in PREMIX 1 EACH IV SCH (11:54)
[2020-01-21] MEDS: INSULIN GLARGINE 100 UNIT/ML SUBCUT SCH (16:41)
[2020-01-21] MEDS ORDERED: ZALEPLON 5 MG CAPSULE PO PRN (20:33)
[2020-01-21] MEDS: ENOXAPARIN 30 MG/0.3 ML SYRINGE SUBCUT SCH (20:52)
[2020-01-22] MEDS: LEVOTHYROXINE 125 MCG TABLET PO SCH (06:26)
[2020-01-22] MEDS: DOCUSATE SODIUM 100 MG CAPSULE PO SCH ×2 (08:53→22:15)
[2020-01-22] MEDS: ASPIRIN CHEW 81 MG TABLET PO SCH (08:53)
[2020-01-22] MEDS: PANTOPRAZOLE 40 MG TABLET PO SCH (08:53)
[2020-01-22] MEDS: AMIODARONE 200 MG TABLET PO SCH ×2 (08:53→20:35)
[2020-01-22] MEDS: carvediloL 6.25 MG TABLET PO SCH ×2 (08:53→17:32)
[2020-01-22] MEDS: FUROSEMIDE 40 MG TABLET PO SCH ×2 (08:53→17:32)
[2020-01-22] MEDS: INSULIN LISPRO 100 UNIT/ML SUBCUT SCH ×4 (08:59→22:15)
[2020-01-22] MEDS: LEVOFLOXACIN INJ 500 MG in PREMIX 1 EACH IV SCH (12:12)
[2020-01-22] MEDS: SODIUM CHLORIDE 0.9% 1,000 ML IV SCH (12:12)
[2020-01-22] MEDS: INSULIN GLARGINE 100 UNIT/ML SUBCUT SCH (17:32)
[2020-01-22] MEDS ORDERED: FUROSEMIDE 40 MG/4 ML VIAL IV ONE (20:30)
[2020-01-22] MEDS: ENOXAPARIN 30 MG/0.3 ML SYRINGE SUBCUT SCH (20:35)
[2020-01-22] MEDS: ZALEPLON 5 MG CAPSULE PO PRN (20:35)
[2020-01-22 20:36] LABS: Basophils % 0.1 % (0.0-0.8); Eosinophils % 0.2 % (0.00-10.9); Hemoglobin 9.7 GM/DL (14.0-18.0); Immature Granulocytes % 1.7 %; Immature Granulocytes Absolute 0.17 #; Lymphocytes # 0.8 10*3/uL (1.4-4.0); Lymphocytes % 7.6 % (21.2-54.2); Mean Corpuscular HGB Conc 32.3 GM/DL (32-36); Mean Corpuscular Volume 81.7 FL (87-102); Mean Platelet Volume 9.3 FL (9.6-12.0); Monocytes % 5.3 % (1.7-12.7); NRBC # 0.02 10*3/uL; Neutrophils % 85.1 % (38.7-73.9); Platelet Count 274 T/CUMM (130-400); Red Blood Count 3.67 MC/CUMM (3.8-5.5); Red Cell Distribution Width 16.6 % (9.3-17.3); White Blood Count 9.9 T/CUMM (4-12)
[2020-01-22 20:55] LABS: Albumin 2.2 G/DL (3.4-5.0); Bilirubin,Total 0.8 MG/DL (0.2-1.0); Calcium 7.8 MG/DL (8.5-10.1); Osmolality,Calculated 282.2 MOS/KG (273-304); Total Protein 6.4 G/DL (6.4-8.3)
[2020-01-22 22:36] LABS: ABG Base Excess -3.1 MMOL/L (-2.5-2.5); ABG HCO3 21.8 MMOL/L (20-26); ABG Oxygen Saturation 95.7 % (95-100); ABG PCO2 29.4 MM HG (35-48); ABG PH 7.444 (7.35-7.45); ABG PO2 78.7 MM HG (80-95); ABG TCO2 18.5 MMOL/L (23-27)
[2020-01-22] MEDS ORDERED: DEXAMETHASONE 4 MG/1 ML VIAL IV ONE (23:00)
[2020-01-22] MEDS: BUDESONIDE/FORMOTEROL 80-4.5 INHALER 6.9 GM INH SCH (23:11)
[2020-01-23 06:16] LABS: Hematocrit 29.9 VOL% (42.0-52.0); Hemoglobin 9.5 GM/DL (14.0-18.0); Immature Granulocytes % 2.4 %; Immature Granulocytes Absolute 0.19 #; Lymphocytes # 0.4 10*3/uL (1.4-4.0); Mean Corpuscular HGB Conc 31.8 GM/DL (32-36); Mean Corpuscular Volume 83.1 FL (87-102); Mean Platelet Volume 9.8 FL (9.6-12.0); Monocytes % 4.6 % (1.7-12.7); Platelet Count 279 T/CUMM (130-400); Red Cell Distribution Width 16.9 % (9.3-17.3); White Blood Count 8.1 T/CUMM (4-12)
[2020-01-23] MEDS: LEVOTHYROXINE 125 MCG TABLET PO SCH (06:29)
[2020-01-23 06:35] LABS: Calcium 7.9 MG/DL (8.5-10.1); Osmolality,Calculated 289.8 MOS/KG (273-304)
[2020-01-23] MEDS: INSULIN LISPRO 100 UNIT/ML SUBCUT SCH ×4 (09:06→22:56)
[2020-01-23] MEDS: ASCORBIC ACID 500 MG TABLET PO SCH (09:07)
[2020-01-23] MEDS: FERROUS SULFATE 325 MG TABLET PO SCH ×2 (09:07→20:20)
[2020-01-23] MEDS: FUROSEMIDE 40 MG TABLET PO SCH ×2 (09:07→16:55)
[2020-01-23] MEDS: AZITHROMYCIN INJ 500 MG in SODIUM CHLORIDE 0.9% 250 ML IV SCH (09:07)
[2020-01-23] MEDS: carvediloL 6.25 MG TABLET PO SCH ×2 (09:07→16:55)
[2020-01-23] MEDS: CHOLECALCIFEROL 1,000 UNIT TABLET PO SCH (09:07)
[2020-01-23] MEDS: ASPIRIN CHEW 81 MG TABLET PO SCH (09:07)
[2020-01-23] MEDS: ZINC GLUCONATE 50 MG TABLET PO SCH (09:07)
[2020-01-23] MEDS: DOCUSATE SODIUM 100 MG CAPSULE PO SCH ×2 (09:07→20:20)
[2020-01-23] MEDS: AMIODARONE 200 MG TABLET PO SCH ×2 (09:07→20:20)
[2020-01-23] MEDS: PANTOPRAZOLE 40 MG TABLET PO SCH (09:07)
[2020-01-23] MEDS: BUDESONIDE/FORMOTEROL 80-4.5 INHALER 6.9 GM INH SCH ×2 (09:08→20:20)
[2020-01-23] MEDS: GENTAMICIN 0.1% CREAM 15 GM TUBE TOP SCH (16:20)
[2020-01-23] MEDS: INSULIN GLARGINE 100 UNIT/ML SUBCUT SCH (16:55)
[2020-01-23] MEDS: ENOXAPARIN 30 MG/0.3 ML SYRINGE SUBCUT SCH (20:20)
[2020-01-24] MEDS: SODIUM CHLORIDE 0.9% 1,000 ML IV SCH (02:05)
[2020-01-24] MEDS: LEVOTHYROXINE 125 MCG TABLET PO SCH (06:25)
[2020-01-24 06:30] LABS: Basophils % 0.1 % (0.0-0.8); Eosinophils % 0.1 % (0.00-10.9); Hematocrit 29.9 VOL% (42.0-52.0); Hemoglobin 9.5 GM/DL (14.0-18.0); Immature Granulocytes % 1.8 %; Immature Granulocytes Absolute 0.23 #; Lymphocytes # 0.7 10*3/uL (1.4-4.0); Lymphocytes % 5.8 % (21.2-54.2); Mean Corpuscular HGB Conc 31.8 GM/DL (32-36); Mean Corpuscular Volume 81.3 FL (87-102); Mean Platelet Volume 9.4 FL (9.6-12.0); Monocytes % 4.7 % (1.7-12.7); NRBC # 0.02 10*3/uL; Neutrophils % 87.5 % (38.7-73.9); Platelet Count 317 T/CUMM (130-400); Red Blood Count 3.68 MC/CUMM (3.8-5.5); White Blood Count 12.5 T/CUMM (4-12)
[2020-01-24] MEDS: DOCUSATE SODIUM 100 MG CAPSULE PO SCH ×2 (10:23→21:14)
[2020-01-24] MEDS: INSULIN LISPRO 100 UNIT/ML SUBCUT SCH ×4 (10:23→21:13)
[2020-01-24] MEDS: carvediloL 6.25 MG TABLET PO SCH ×2 (10:23→16:53)
[2020-01-24] MEDS: AZITHROMYCIN INJ 500 MG in SODIUM CHLORIDE 0.9% 250 ML IV SCH (10:23)
[2020-01-24] MEDS: AMIODARONE 200 MG TABLET PO SCH ×2 (10:23→21:13)
[2020-01-24] MEDS: ASPIRIN CHEW 81 MG TABLET PO SCH (10:23)
[2020-01-24] MEDS: FUROSEMIDE 40 MG TABLET PO SCH ×2 (10:23→17:25)
[2020-01-24] MEDS: ASCORBIC ACID 500 MG TABLET PO SCH (10:24)
[2020-01-24] MEDS: PANTOPRAZOLE 40 MG TABLET PO SCH (10:24)
[2020-01-24] MEDS: FERROUS SULFATE 325 MG TABLET PO SCH ×2 (10:24→21:14)
[2020-01-24] MEDS: BUDESONIDE/FORMOTEROL 80-4.5 INHALER 6.9 GM INH SCH ×2 (10:24→21:13)
[2020-01-24] MEDS: ZINC GLUCONATE 50 MG TABLET PO SCH (10:25)
[2020-01-24] MEDS: CHOLECALCIFEROL 1,000 UNIT TABLET PO SCH (16:26)
[2020-01-24] MEDS: INSULIN GLARGINE 100 UNIT/ML SUBCUT SCH (17:25)
[2020-01-24] MEDS: ZALEPLON 5 MG CAPSULE PO PRN (21:13)
[2020-01-24] MEDS: ENOXAPARIN 30 MG/0.3 ML SYRINGE SUBCUT SCH (21:14)
[2020-01-25] MEDS: LEVOTHYROXINE 125 MCG TABLET PO SCH (05:31)
[2020-01-25 06:41] LABS: Calcium 7.6 MG/DL (8.5-10.1); Osmolality,Calculated 292.5 MOS/KG (273-304)
[2020-01-25 06:45] LABS: Bilirubin,Total 1.7 MG/DL (0.2-1.0); Calcium 7.7 MG/DL (8.5-10.1); Osmolality,Calculated 289.7 MOS/KG (273-304)
[2020-01-25 06:46] LABS: Basophils % 0.1 % (0.0-0.8); Eosinophils % 0.3 % (0.00-10.9); Hematocrit 28.5 VOL% (42.0-52.0); Hemoglobin 9.3 GM/DL (14.0-18.0); Immature Granulocytes % 1.7 %; Immature Granulocytes Absolute 0.17 #; Lymphocytes # 0.6 10*3/uL (1.4-4.0); Lymphocytes % 5.4 % (21.2-54.2); Mean Corpuscular HGB Conc 32.6 GM/DL (32-36); Mean Platelet Volume 9.9 FL (9.6-12.0); Monocytes % 3.8 % (1.7-12.7); NRBC # 0.02 10*3/uL; Neutrophils % 88.7 % (38.7-73.9); Platelet Count 285 T/CUMM (130-400); Red Blood Count 3.52 MC/CUMM (3.8-5.5); White Blood Count 10.2 T/CUMM (4-12)
[2020-01-25] MEDS: FUROSEMIDE 40 MG TABLET PO SCH (08:20)
[2020-01-25] MEDS: carvediloL 6.25 MG TABLET PO SCH (08:20)
[2020-01-25] MEDS: INSULIN LISPRO 100 UNIT/ML SUBCUT SCH ×4 (09:33→21:38)
[2020-01-25] MEDS: AZITHROMYCIN INJ 500 MG in SODIUM CHLORIDE 0.9% 250 ML IV SCH (09:34)
[2020-01-25] MEDS: ZINC GLUCONATE 50 MG TABLET PO SCH (09:35)
[2020-01-25] MEDS: FERROUS SULFATE 325 MG TABLET PO SCH ×2 (09:35→21:38)
[2020-01-25] MEDS: ASCORBIC ACID 500 MG TABLET PO SCH (09:35)
[2020-01-25] MEDS: CHOLECALCIFEROL 1,000 UNIT TABLET PO SCH (09:35)
[2020-01-25] MEDS: ASPIRIN CHEW 81 MG TABLET PO SCH (09:35)
[2020-01-25] MEDS: DOCUSATE SODIUM 100 MG CAPSULE PO SCH ×2 (09:35→21:37)
[2020-01-25] MEDS: PANTOPRAZOLE 40 MG TABLET PO SCH (09:35)
[2020-01-25] MEDS: carvediloL 3.125 MG TABLET PO SCH ×2 (09:35→17:09)
[2020-01-25] MEDS: BUDESONIDE/FORMOTEROL 80-4.5 INHALER 6.9 GM INH SCH ×2 (09:38→21:39)
[2020-01-25] MEDS ORDERED: SODIUM CHLORIDE 0.9% 1,000 ML IV PRN (11:49)
[2020-01-25] MEDS: GENTAMICIN 0.1% CREAM 15 GM TUBE TOP SCH (14:01)
[2020-01-25] MEDS: LORATADINE 10 MG TABLET PO SCH (14:01)
[2020-01-25] MEDS: FUROSEMIDE 40 MG/4 ML VIAL IV SCH (15:17)
[2020-01-25] MEDS: FLUTICASONE 50 MCG NASAL SPRAY 16 GM BOTTLE BOTH NARES SCH ×2 (16:38→21:38)
[2020-01-25] MEDS: INSULIN GLARGINE 100 UNIT/ML SUBCUT SCH (17:41)
[2020-01-25] MEDS: ENOXAPARIN 30 MG/0.3 ML SYRINGE SUBCUT SCH (21:38)
[2020-01-25] MEDS: ACETAMINOPHEN 325 MG TABLET PO PRN (21:39)
[2020-01-25] MEDS: ZALEPLON 5 MG CAPSULE PO PRN (21:39)
[2020-01-26] MEDS: LEVOTHYROXINE 125 MCG TABLET PO SCH (05:45)
[2020-01-26 06:31] LABS: Basophils % 0.1 % (0.0-0.8); Eosinophils % 0.3 % (0.00-10.9); Hematocrit 29.8 VOL% (42.0-52.0); Hemoglobin 9.6 GM/DL (14.0-18.0); Immature Granulocytes % 1.9 %; Immature Granulocytes Absolute 0.24 #; Lymphocytes # 0.5 10*3/uL (1.4-4.0); Mean Corpuscular HGB Conc 32.2 GM/DL (32-36); Mean Platelet Volume 9.7 FL (9.6-12.0); Monocytes % 2.6 % (1.7-12.7); Neutrophils % 91.1 % (38.7-73.9); Platelet Count 248 T/CUMM (130-400); Red Blood Count 3.68 MC/CUMM (3.8-5.5); Red Cell Distribution Width 17.2 % (9.3-17.3); White Blood Count 12.5 T/CUMM (4-12)
[2020-01-26 06:51] LABS: Albumin 2.1 G/DL (3.4-5.0); Bilirubin,Total 1.6 MG/DL (0.2-1.0); Calcium 7.8 MG/DL (8.5-10.1); Osmolality,Calculated 291.7 MOS/KG (273-304); Total Protein 6.2 G/DL (6.4-8.3)
[2020-01-26 07:00] LABS: Band Neutrophils 2 % (0-10); Hypochromasia 2+; Lymphocytes 1 % (20-55); Microcytosis 1+; Segmented Neutrophils 94 % (50-85); Target Cells Slight; Total Cells Counted 100
[2020-01-26 07:01] LABS: Platelet Estimate Normal
[2020-01-26] MEDS: INSULIN LISPRO 100 UNIT/ML SUBCUT SCH ×4 (08:50→20:28)
[2020-01-26] MEDS: FUROSEMIDE 40 MG/4 ML VIAL IV SCH ×2 (08:51→16:15)
[2020-01-26] MEDS: carvediloL 3.125 MG TABLET PO SCH ×2 (08:51→16:15)
[2020-01-26] MEDS: ASCORBIC ACID 500 MG TABLET PO SCH (08:52)
[2020-01-26] MEDS: BUDESONIDE/FORMOTEROL 80-4.5 INHALER 6.9 GM INH SCH ×2 (08:52→20:30)
[2020-01-26] MEDS: LORATADINE 10 MG TABLET PO SCH (08:52)
[2020-01-26] MEDS: FERROUS SULFATE 325 MG TABLET PO SCH ×2 (08:52→20:32)
[2020-01-26] MEDS: CHOLECALCIFEROL 1,000 UNIT TABLET PO SCH (08:52)
[2020-01-26] MEDS: ASPIRIN CHEW 81 MG TABLET PO SCH (08:52)
[2020-01-26] MEDS: PANTOPRAZOLE 40 MG TABLET PO SCH (08:52)
[2020-01-26] MEDS: ZINC GLUCONATE 50 MG TABLET PO SCH (08:52)
[2020-01-26] MEDS: DOCUSATE SODIUM 100 MG CAPSULE PO SCH ×2 (08:52→20:31)
[2020-01-26] MEDS: FLUTICASONE 50 MCG NASAL SPRAY 16 GM BOTTLE BOTH NARES SCH ×2 (08:53→20:29)
[2020-01-26] MEDS: AZITHROMYCIN INJ 500 MG in SODIUM CHLORIDE 0.9% 250 ML IV SCH (08:53)
[2020-01-26] MEDS: DEXAMETHASONE 4 MG/1 ML VIAL IV SCH (09:14)
[2020-01-26] MEDS: MENTHOL/ZINC OXIDE OINT 71 GM JAR TOP SCH ×2 (09:14→20:31)
[2020-01-26] MEDS: POTASSIUM CHLORIDE 20 MEQ TABLET PO PRN ×4 (10:03→16:16)
[2020-01-26] MEDS: INSULIN GLARGINE 100 UNIT/ML SUBCUT SCH (17:32)
[2020-01-26] MEDS: ZALEPLON 5 MG CAPSULE PO PRN (20:29)
[2020-01-26] MEDS: ACETAMINOPHEN 325 MG TABLET PO PRN (20:29)
[2020-01-26] MEDS: ENOXAPARIN 30 MG/0.3 ML SYRINGE SUBCUT SCH (20:30)
[2020-01-27 05:57] LABS: Basophils % 0.1 % (0.0-0.8); Eosinophils % 0.1 % (0.00-10.9); Hematocrit 29.8 VOL% (42.0-52.0); Hemoglobin 9.7 GM/DL (14.0-18.0); Immature Granulocytes % 1.6 %; Immature Granulocytes Absolute 0.23 #; Lymphocytes # 0.7 10*3/uL (1.4-4.0); Mean Corpuscular HGB Conc 32.6 GM/DL (32-36); Mean Corpuscular Volume 80.1 FL (87-102); Mean Platelet Volume 9.7 FL (9.6-12.0); Monocytes % 2.5 % (1.7-12.7); Neutrophils % 90.7 % (38.7-73.9); Platelet Count 243 T/CUMM (130-400); Red Blood Count 3.72 MC/CUMM (3.8-5.5); Red Cell Distribution Width 17.4 % (9.3-17.3); White Blood Count 14.3 T/CUMM (4-12)
[2020-01-27 06:21] LABS: Albumin 2.2 G/DL (3.4-5.0); Bilirubin,Total 1.3 MG/DL (0.2-1.0); Calcium 8.1 MG/DL (8.5-10.1); Osmolality,Calculated 295.4 MOS/KG (273-304); Total Protein 6.4 G/DL (6.4-8.3)
[2020-01-27 06:28] LABS: Calcium 8.1 MG/DL (8.5-10.1); Osmolality,Calculated 299.1 MOS/KG (273-304)
[2020-01-27] MEDS: LEVOTHYROXINE 125 MCG TABLET PO SCH (06:30)
[2020-01-27 06:41] LABS: Hypochromasia 1+; Lymphocytes 3 % (20-55); Microcytosis 1+; Ovalocytes Slight; Platelet Estimate Adequate; Segmented Neutrophils 97 % (50-85); Total Cells Counted 100
[2020-01-27] MEDS: INSULIN LISPRO 100 UNIT/ML SUBCUT SCH ×4 (09:24→21:26)
[2020-01-27] MEDS: AZITHROMYCIN INJ 500 MG in SODIUM CHLORIDE 0.9% 250 ML IV SCH (09:25)
[2020-01-27] MEDS: FLUTICASONE 50 MCG NASAL SPRAY 16 GM BOTTLE BOTH NARES SCH ×2 (09:26→21:27)
[2020-01-27] MEDS: DEXAMETHASONE 4 MG/1 ML VIAL IV SCH (09:26)
[2020-01-27] MEDS: FUROSEMIDE 40 MG/4 ML VIAL IV SCH ×2 (09:26→17:44)
[2020-01-27] MEDS: CHOLECALCIFEROL 1,000 UNIT TABLET PO SCH (09:27)
[2020-01-27] MEDS: ASCORBIC ACID 500 MG TABLET PO SCH (09:27)
[2020-01-27] MEDS: ASPIRIN CHEW 81 MG TABLET PO SCH (09:28)
[2020-01-27] MEDS: FERROUS SULFATE 325 MG TABLET PO SCH ×2 (09:28→21:27)
[2020-01-27] MEDS: PANTOPRAZOLE 40 MG TABLET PO SCH (09:28)
[2020-01-27] MEDS: LORATADINE 10 MG TABLET PO SCH (09:28)
[2020-01-27] MEDS: DOCUSATE SODIUM 100 MG CAPSULE PO SCH ×3 (09:28→21:37)
[2020-01-27] MEDS: carvediloL 3.125 MG TABLET PO SCH ×2 (09:28→18:55)
[2020-01-27] MEDS: BUDESONIDE/FORMOTEROL 80-4.5 INHALER 6.9 GM INH SCH ×2 (09:28→21:27)
[2020-01-27] MEDS: ZINC GLUCONATE 50 MG TABLET PO SCH (12:19)
[2020-01-27] MEDS: INSULIN GLARGINE 100 UNIT/ML SUBCUT SCH (17:45)
[2020-01-27] MEDS: GENTAMICIN 0.1% CREAM 15 GM TUBE TOP SCH (18:50)
[2020-01-27] MEDS: MENTHOL/ZINC OXIDE OINT 71 GM JAR TOP SCH ×2 (21:25→21:26)
[2020-01-27] MEDS: ZALEPLON 5 MG CAPSULE PO PRN (21:27)
[2020-01-27] MEDS: ENOXAPARIN 30 MG/0.3 ML SYRINGE SUBCUT SCH (21:27)
[2020-01-28 05:15] LABS: Calcium 8.1 MG/DL (8.5-10.1); Osmolality,Calculated 294.1 MOS/KG (273-304)
[2020-01-28 05:27] LABS: Basophils % 0.1 % (0.0-0.8); Eosinophils % 0.1 % (0.00-10.9); Hematocrit 30.3 VOL% (42.0-52.0); Hemoglobin 9.7 GM/DL (14.0-18.0); Immature Granulocytes % 1.4 %; Immature Granulocytes Absolute 0.22 #; Lymphocytes # 0.9 10*3/uL (1.4-4.0); Lymphocytes % 5.6 % (21.2-54.2); Mean Corpuscular Volume 80.4 FL (87-102); Mean Platelet Volume 10.3 FL (9.6-12.0); Monocytes % 3.1 % (1.7-12.7); NRBC # 0.02 10*3/uL; Neutrophils % 89.7 % (38.7-73.9); Platelet Count 214 T/CUMM (130-400); Red Blood Count 3.77 MC/CUMM (3.8-5.5); Red Cell Distribution Width 17.6 % (9.3-17.3); White Blood Count 15.4 T/CUMM (4-12)
[2020-01-28] MEDS: LEVOTHYROXINE 125 MCG TABLET PO SCH (06:41)
[2020-01-28] MEDS: INSULIN LISPRO 100 UNIT/ML SUBCUT SCH ×4 (07:30→20:19)
[2020-01-28] MEDS: FUROSEMIDE 40 MG/4 ML VIAL IV SCH ×2 (09:26→17:20)
[2020-01-28] MEDS: MENTHOL/ZINC OXIDE OINT 71 GM JAR TOP SCH ×2 (09:26→20:21)
[2020-01-28] MEDS: FLUTICASONE 50 MCG NASAL SPRAY 16 GM BOTTLE BOTH NARES SCH ×2 (09:28→20:29)
[2020-01-28] MEDS: BUDESONIDE/FORMOTEROL 80-4.5 INHALER 6.9 GM INH SCH ×2 (09:28→20:29)
[2020-01-28] MEDS: AZITHROMYCIN INJ 500 MG in SODIUM CHLORIDE 0.9% 250 ML IV SCH (10:13)
[2020-01-28] MEDS: DEXAMETHASONE 4 MG/1 ML VIAL IV SCH (10:14)
[2020-01-28] MEDS: carvediloL 3.125 MG TABLET PO SCH ×2 (10:15→17:20)
[2020-01-28] MEDS: LORATADINE 10 MG TABLET PO SCH (10:15)
[2020-01-28] MEDS: ASPIRIN CHEW 81 MG TABLET PO SCH (10:15)
[2020-01-28] MEDS: DOCUSATE SODIUM 100 MG CAPSULE PO SCH ×3 (10:15→20:21)
[2020-01-28] MEDS: POTASSIUM CHLORIDE 20 MEQ TABLET PO PRN ×4 (10:15→20:20)
[2020-01-28] MEDS: PANTOPRAZOLE 40 MG TABLET PO SCH (10:16)
[2020-01-28] MEDS: ASCORBIC ACID 500 MG TABLET PO SCH (10:16)
[2020-01-28] MEDS: POTASSIUM CHLORIDE RIDER 10 MEQ in PREMIX 1 EACH IV SCH (14:00)
[2020-01-28] MEDS: FERROUS SULFATE 325 MG TABLET PO SCH ×2 (14:03→20:21)
[2020-01-28] MEDS: CHOLECALCIFEROL 1,000 UNIT TABLET PO SCH (14:04)
[2020-01-28] MEDS: ZINC GLUCONATE 50 MG TABLET PO SCH (14:05)
[2020-01-28] MEDS: INSULIN GLARGINE 100 UNIT/ML SUBCUT SCH (17:20)
[2020-01-28] MEDS: POTASSIUM CHLORIDE 10 MEQ TABLET PO SCH (20:20)
[2020-01-28] MEDS: ENOXAPARIN 30 MG/0.3 ML SYRINGE SUBCUT SCH (20:21)
[2020-01-28] MEDS: SIMVASTATIN 40 MG TABLET PO SCH (20:21)
[2020-01-29] MEDS: LEVOTHYROXINE 125 MCG TABLET PO SCH (05:38)
[2020-01-29 07:09] LABS: Basophils % 0.1 % (0.0-0.8); Hematocrit 32.2 VOL% (42.0-52.0); Hemoglobin 10.2 GM/DL (14.0-18.0); Immature Granulocytes % 2.2 %; Lymphocytes # 1.2 10*3/uL (1.4-4.0); Lymphocytes % 6.7 % (21.2-54.2); Mean Corpuscular HGB Conc 31.7 GM/DL (32-36); Mean Corpuscular Volume 80.5 FL (87-102); Mean Platelet Volume 10.3 FL (9.6-12.0); Monocytes % 2.9 % (1.7-12.7); Neutrophils % 88.1 % (38.7-73.9); Platelet Count 211 T/CUMM (130-400)
[2020-01-29 07:29] LABS: Calcium 8.3 MG/DL (8.5-10.1); Osmolality,Calculated 296.1 MOS/KG (273-304)
[2020-01-29 08:53] LABS: Anisocytosis 1+; Band Neutrophils 8 % (0-10); Lymphocytes 4 % (20-55); Macrocytosis 1+; Metamyelocytes 1 %; Platelet Estimate Normal; Poikilocytosis Slight; Segmented Neutrophils 81 % (50-85); Target Cells 1+; Tear Drop Cells Few; Total Cells Counted 100
[2020-01-29] MEDS: BUDESONIDE/FORMOTEROL 80-4.5 INHALER 6.9 GM INH SCH ×2 (10:26→20:40)
[2020-01-29] MEDS: INSULIN LISPRO 100 UNIT/ML SUBCUT SCH ×4 (10:42→21:25)
[2020-01-29] MEDS: ASCORBIC ACID 500 MG TABLET PO SCH (10:43)
[2020-01-29] MEDS: CHOLECALCIFEROL 1,000 UNIT TABLET PO SCH (10:43)
[2020-01-29] MEDS: ZINC GLUCONATE 50 MG TABLET PO SCH (10:43)
[2020-01-29] MEDS: POTASSIUM CHLORIDE 10 MEQ TABLET PO SCH ×2 (10:43→20:38)
[2020-01-29] MEDS: FLUTICASONE 50 MCG NASAL SPRAY 16 GM BOTTLE BOTH NARES SCH ×2 (10:43→20:40)
[2020-01-29] MEDS: DOCUSATE SODIUM 100 MG CAPSULE PO SCH ×2 (10:44→20:39)
[2020-01-29] MEDS: LORATADINE 10 MG TABLET PO SCH (10:44)
[2020-01-29] MEDS: PANTOPRAZOLE 40 MG TABLET PO SCH (10:44)
[2020-01-29] MEDS: FERROUS SULFATE 325 MG TABLET PO SCH ×2 (10:44→20:38)
[2020-01-29] MEDS: ASPIRIN CHEW 81 MG TABLET PO SCH (10:44)
[2020-01-29] MEDS: FUROSEMIDE 40 MG/4 ML VIAL IV SCH ×2 (10:44→17:17)
[2020-01-29] MEDS: carvediloL 3.125 MG TABLET PO SCH ×2 (10:44→17:18)
[2020-01-29] MEDS: DEXAMETHASONE 4 MG/1 ML VIAL IV SCH (10:45)
[2020-01-29] MEDS: GENTAMICIN 0.1% CREAM 15 GM TUBE TOP SCH (12:26)
[2020-01-29] MEDS: MENTHOL/ZINC OXIDE OINT 71 GM JAR TOP SCH ×2 (12:26→20:39)
[2020-01-29] MEDS: AZITHROMYCIN INJ 500 MG in SODIUM CHLORIDE 0.9% 250 ML IV SCH (12:27)
[2020-01-29] MEDS: INSULIN GLARGINE 100 UNIT/ML SUBCUT SCH (17:18)
[2020-01-29] MEDS: ZALEPLON 5 MG CAPSULE PO PRN (20:39)
[2020-01-29] MEDS: ENOXAPARIN 30 MG/0.3 ML SYRINGE SUBCUT SCH (20:39)
[2020-01-29] MEDS: SIMVASTATIN 40 MG TABLET PO SCH (21:25)
[2020-01-30] MEDS: LEVOTHYROXINE 125 MCG TABLET PO SCH (05:30)
[2020-01-30 06:43] LABS: Basophils % 0.1 % (0.0-0.8); Hematocrit 30.9 VOL% (42.0-52.0); Hemoglobin 9.9 GM/DL (14.0-18.0); Immature Granulocytes % 0.9 %; Immature Granulocytes Absolute 0.16 #; Lymphocytes # 1.1 10*3/uL (1.4-4.0); Lymphocytes % 6.3 % (21.2-54.2); Mean Corpuscular Volume 80.1 FL (87-102); Mean Platelet Volume 10.2 FL (9.6-12.0); Monocytes % 3.7 % (1.7-12.7); Platelet Count 196 T/CUMM (130-400); Red Blood Count 3.86 MC/CUMM (3.8-5.5); Red Cell Distribution Width 17.9 % (9.3-17.3); White Blood Count 17.1 T/CUMM (4-12)
[2020-01-30 07:07] LABS: Bilirubin,Total 1.3 MG/DL (0.2-1.0); Calcium 8.1 MG/DL (8.5-10.1); Osmolality,Calculated 292.5 MOS/KG (273-304); Total Protein 6.2 G/DL (6.4-8.3)
[2020-01-30 07:34] LABS: Anisocytosis 1+; Lymphocytes 7 % (20-55); Macrocytosis 1+; Platelet Estimate Normal; Segmented Neutrophils 89 % (50-85); Total Cells Counted 100
[2020-01-30] MEDS: MENTHOL/ZINC OXIDE OINT 71 GM JAR TOP SCH ×2 (08:46→22:11)
[2020-01-30] MEDS: DEXAMETHASONE 4 MG/1 ML VIAL IV SCH (08:46)
[2020-01-30] MEDS: ASPIRIN CHEW 81 MG TABLET PO SCH (08:46)
[2020-01-30] MEDS: AZITHROMYCIN INJ 500 MG in SODIUM CHLORIDE 0.9% 250 ML IV SCH (08:46)
[2020-01-30] MEDS: LORATADINE 10 MG TABLET PO SCH (08:46)
[2020-01-30] MEDS: INSULIN LISPRO 100 UNIT/ML SUBCUT SCH ×4 (08:46→22:11)
[2020-01-30] MEDS: FUROSEMIDE 40 MG/4 ML VIAL IV SCH ×2 (08:46→15:56)
[2020-01-30] MEDS: DOCUSATE SODIUM 100 MG CAPSULE PO SCH ×2 (08:46→22:11)
[2020-01-30] MEDS: carvediloL 3.125 MG TABLET PO SCH ×2 (08:46→16:04)
[2020-01-30] MEDS: CHOLECALCIFEROL 1,000 UNIT TABLET PO SCH (08:47)
[2020-01-30] MEDS: FLUTICASONE 50 MCG NASAL SPRAY 16 GM BOTTLE BOTH NARES SCH ×2 (08:47→22:11)
[2020-01-30] MEDS: PANTOPRAZOLE 40 MG TABLET PO SCH (08:47)
[2020-01-30] MEDS: ASCORBIC ACID 500 MG TABLET PO SCH (08:47)
[2020-01-30] MEDS: BUDESONIDE/FORMOTEROL 80-4.5 INHALER 6.9 GM INH SCH ×2 (08:47→22:12)
[2020-01-30] MEDS: ZINC GLUCONATE 50 MG TABLET PO SCH (08:47)
[2020-01-30] MEDS: POTASSIUM CHLORIDE 10 MEQ TABLET PO SCH ×2 (08:47→22:11)
[2020-01-30] MEDS: FERROUS SULFATE 325 MG TABLET PO SCH ×2 (08:47→22:11)
[2020-01-30] MEDS: INSULIN GLARGINE 100 UNIT/ML SUBCUT SCH (16:04)
[2020-01-30] MEDS: SIMVASTATIN 40 MG TABLET PO SCH (22:12)
[2020-01-30] MEDS: ENOXAPARIN 30 MG/0.3 ML SYRINGE SUBCUT SCH (22:12)
[2020-01-31] MEDS: ACETAMINOPHEN 325 MG TABLET PO PRN (04:20)
[2020-01-31] MEDS: LEVOTHYROXINE 125 MCG TABLET PO SCH (05:39)
[2020-01-31 06:25] LABS: Basophils % 0.1 % (0.0-0.8); Eosinophils % 0.1 % (0.00-10.9); Hematocrit 31.3 VOL% (42.0-52.0); Immature Granulocytes % 1.2 %; Immature Granulocytes Absolute 0.24 #; Lymphocytes # 0.7 10*3/uL (1.4-4.0); Lymphocytes % 3.7 % (21.2-54.2); Mean Corpuscular HGB Conc 31.9 GM/DL (32-36); Mean Corpuscular Volume 80.1 FL (87-102); Mean Platelet Volume 10.1 FL (9.6-12.0); Monocytes % 2.5 % (1.7-12.7); Neutrophils % 92.4 % (38.7-73.9); Platelet Count 198 T/CUMM (130-400); Red Blood Count 3.91 MC/CUMM (3.8-5.5); Red Cell Distribution Width 17.9 % (9.3-17.3); White Blood Count 19.3 T/CUMM (4-12)
[2020-01-31 06:45] LABS: Calcium 8.2 MG/DL (8.5-10.1); Osmolality,Calculated 294.1 MOS/KG (273-304)
[2020-01-31 07:04] LABS: Hypochromasia 1+; Lymphocytes 3 % (20-55); Microcytosis 1+; Ovalocytes Slight; Platelet Estimate Adequate; Segmented Neutrophils 97 % (50-85); Total Cells Counted 100
[2020-01-31] MEDS: carvediloL 3.125 MG TABLET PO SCH ×2 (08:06→17:12)
[2020-01-31] MEDS: ASPIRIN CHEW 81 MG TABLET PO SCH (08:06)
[2020-01-31] MEDS: FUROSEMIDE 40 MG/4 ML VIAL IV SCH ×2 (08:06→17:12)
[2020-01-31] MEDS: INSULIN LISPRO 100 UNIT/ML SUBCUT SCH ×4 (08:06→20:30)
[2020-01-31] MEDS: ASCORBIC ACID 500 MG TABLET PO SCH (08:07)
[2020-01-31] MEDS: MENTHOL/ZINC OXIDE OINT 71 GM JAR TOP SCH ×2 (08:07→20:28)
[2020-01-31] MEDS: FLUTICASONE 50 MCG NASAL SPRAY 16 GM BOTTLE BOTH NARES SCH ×2 (08:07→20:29)
[2020-01-31] MEDS: PANTOPRAZOLE 40 MG TABLET PO SCH (08:07)
[2020-01-31] MEDS: FERROUS SULFATE 325 MG TABLET PO SCH ×2 (08:07→20:28)
[2020-01-31] MEDS: BUDESONIDE/FORMOTEROL 80-4.5 INHALER 6.9 GM INH SCH ×2 (08:07→20:30)
[2020-01-31] MEDS: GENTAMICIN 0.1% CREAM 15 GM TUBE TOP SCH (08:07)
[2020-01-31] MEDS: ZINC GLUCONATE 50 MG TABLET PO SCH (08:07)
[2020-01-31] MEDS: POTASSIUM CHLORIDE 10 MEQ TABLET PO SCH ×2 (08:07→20:28)
[2020-01-31] MEDS: DEXAMETHASONE 4 MG/1 ML VIAL IV SCH (08:07)
[2020-01-31] MEDS: DOCUSATE SODIUM 100 MG CAPSULE PO SCH ×2 (08:07→20:28)
[2020-01-31] MEDS: LORATADINE 10 MG TABLET PO SCH (08:07)
[2020-01-31] MEDS: CHOLECALCIFEROL 1,000 UNIT TABLET PO SCH (08:07)
[2020-01-31] MEDS: INSULIN GLARGINE 100 UNIT/ML SUBCUT SCH (17:12)
[2020-01-31] MEDS: ENOXAPARIN 30 MG/0.3 ML SYRINGE SUBCUT SCH (20:28)
[2020-01-31] MEDS: SIMVASTATIN 40 MG TABLET PO SCH (20:29)
[2020-02-01 06:09] LABS: Basophils % 0.1 % (0.0-0.8); Eosinophils # 0.1 10*3/uL (0.0-0.87); Eosinophils % 0.7 % (0.00-10.9); Hematocrit 33.9 VOL% (42.0-52.0); Hemoglobin 10.7 GM/DL (14.0-18.0); Immature Granulocytes % 1.4 %; Immature Granulocytes Absolute 0.21 #; Lymphocytes # 0.6 10*3/uL (1.4-4.0); Mean Corpuscular HGB Conc 31.6 GM/DL (32-36); Mean Corpuscular Volume 80.9 FL (87-102); Mean Platelet Volume 10.8 FL (9.6-12.0); Monocytes % 2.5 % (1.7-12.7); Neutrophils % 91.3 % (38.7-73.9); Platelet Count 187 T/CUMM (130-400); Red Blood Count 4.19 MC/CUMM (3.8-5.5); Red Cell Distribution Width 17.9 % (9.3-17.3); White Blood Count 14.7 T/CUMM (4-12)
[2020-02-01 06:12] LABS: Calcium 8.1 MG/DL (8.5-10.1); Osmolality,Calculated 292.3 MOS/KG (273-304)
[2020-02-01] MEDS: LEVOTHYROXINE 125 MCG TABLET PO SCH (06:33)
[2020-02-01 07:11] LABS: Lymphocytes 4 % (20-55); Segmented Neutrophils 95 % (50-85); Total Cells Counted 100
[2020-02-01 07:12] LABS: Platelet Estimate Normal
[2020-02-01] MEDS: INSULIN LISPRO 100 UNIT/ML SUBCUT SCH ×4 (07:35→21:33)
[2020-02-01] MEDS: CHOLECALCIFEROL 1,000 UNIT TABLET PO SCH (10:32)
[2020-02-01] MEDS: FLUTICASONE 50 MCG NASAL SPRAY 16 GM BOTTLE BOTH NARES SCH ×2 (10:32→20:16)
[2020-02-01] MEDS: PANTOPRAZOLE 40 MG TABLET PO SCH (10:32)
[2020-02-01] MEDS: carvediloL 3.125 MG TABLET PO SCH ×2 (10:32→17:55)
[2020-02-01] MEDS: POTASSIUM CHLORIDE 10 MEQ TABLET PO SCH ×2 (10:32→20:16)
[2020-02-01] MEDS: FERROUS SULFATE 325 MG TABLET PO SCH ×2 (10:32→20:16)
[2020-02-01] MEDS: ZINC GLUCONATE 50 MG TABLET PO SCH (10:32)
[2020-02-01] MEDS: DOCUSATE SODIUM 100 MG CAPSULE PO SCH ×2 (10:32→20:56)
[2020-02-01] MEDS: ASCORBIC ACID 500 MG TABLET PO SCH (10:33)
[2020-02-01] MEDS: DEXAMETHASONE 4 MG/1 ML VIAL IV SCH (10:33)
[2020-02-01] MEDS: FUROSEMIDE 40 MG/4 ML VIAL IV SCH ×2 (10:33→17:40)
[2020-02-01] MEDS: ASPIRIN CHEW 81 MG TABLET PO SCH (10:33)
[2020-02-01] MEDS: LORATADINE 10 MG TABLET PO SCH (10:34)
[2020-02-01] MEDS: BUDESONIDE/FORMOTEROL 80-4.5 INHALER 6.9 GM INH SCH ×2 (10:36→20:16)
[2020-02-01] MEDS: MENTHOL/ZINC OXIDE OINT 71 GM JAR TOP SCH ×2 (10:47→20:16)
[2020-02-01] MEDS: INSULIN GLARGINE 100 UNIT/ML SUBCUT SCH (17:54)
[2020-02-01] MEDS: ENOXAPARIN 30 MG/0.3 ML SYRINGE SUBCUT SCH (20:16)
[2020-02-01] MEDS: SIMVASTATIN 40 MG TABLET PO SCH (20:16)
[2020-02-02 06:01] LABS: Basophils % 0.1 % (0.0-0.8); Eosinophils # 0.1 10*3/uL (0.0-0.87); Eosinophils % 0.3 % (0.00-10.9); Hematocrit 34.6 VOL% (42.0-52.0); Hemoglobin 10.8 GM/DL (14.0-18.0); Immature Granulocytes % 1.1 %; Immature Granulocytes Absolute 0.16 #; Lymphocytes # 0.7 10*3/uL (1.4-4.0); Lymphocytes % 4.8 % (21.2-54.2); Mean Corpuscular HGB Conc 31.2 GM/DL (32-36); Mean Corpuscular Volume 81.6 FL (87-102); Mean Platelet Volume 10.1 FL (9.6-12.0); Monocytes % 2.8 % (1.7-12.7); Neutrophils % 90.9 % (38.7-73.9); Platelet Count 218 T/CUMM (130-400); Red Blood Count 4.24 MC/CUMM (3.8-5.5); Red Cell Distribution Width 17.8 % (9.3-17.3); White Blood Count 15.1 T/CUMM (4-12)
[2020-02-02] MEDS: LEVOTHYROXINE 125 MCG TABLET PO SCH (06:11)
[2020-02-02 06:30] LABS: Band Neutrophils 2 % (0-10); Lymphocytes 6 % (20-55); Segmented Neutrophils 89 % (50-85); Total Cells Counted 100
[2020-02-02 06:31] LABS: Anisocytosis 1+; Macrocytosis 1+; Platelet Estimate Normal; Target Cells Few
[2020-02-02 06:34] LABS: Calcium 7.9 MG/DL (8.5-10.1); Osmolality,Calculated 300.8 MOS/KG (273-304)
[2020-02-02 06:37] LABS: Osmolality,Calculated 300.8 MOS/KG (273-304)
[2020-02-02] MEDS: INSULIN LISPRO 100 UNIT/ML SUBCUT SCH ×4 (07:46→21:53)
[2020-02-02] MEDS: carvediloL 3.125 MG TABLET PO SCH ×2 (08:15→16:55)
[2020-02-02] MEDS: CHOLECALCIFEROL 1,000 UNIT TABLET PO SCH (08:15)
[2020-02-02] MEDS: DOCUSATE SODIUM 100 MG CAPSULE PO SCH ×2 (08:15→21:53)
[2020-02-02] MEDS: ZINC GLUCONATE 50 MG TABLET PO SCH (08:15)
[2020-02-02] MEDS: ASPIRIN CHEW 81 MG TABLET PO SCH (08:15)
[2020-02-02] MEDS: FUROSEMIDE 40 MG/4 ML VIAL IV SCH ×2 (08:15→16:55)
[2020-02-02] MEDS: BUDESONIDE/FORMOTEROL 80-4.5 INHALER 6.9 GM INH SCH ×2 (08:15→21:53)
[2020-02-02] MEDS: FLUTICASONE 50 MCG NASAL SPRAY 16 GM BOTTLE BOTH NARES SCH ×2 (08:15→21:53)
[2020-02-02] MEDS: FERROUS SULFATE 325 MG TABLET PO SCH ×2 (08:15→21:53)
[2020-02-02] MEDS: ASCORBIC ACID 500 MG TABLET PO SCH (08:15)
[2020-02-02] MEDS: LORATADINE 10 MG TABLET PO SCH (08:15)
[2020-02-02] MEDS: POTASSIUM CHLORIDE 10 MEQ TABLET PO SCH ×2 (08:15→21:53)
[2020-02-02] MEDS: PANTOPRAZOLE 40 MG TABLET PO SCH (08:15)
[2020-02-02] MEDS: DEXAMETHASONE 4 MG/1 ML VIAL IV SCH (08:17)
[2020-02-02] MEDS: MENTHOL/ZINC OXIDE OINT 71 GM JAR TOP SCH ×2 (14:10→21:53)
[2020-02-02] MEDS: GENTAMICIN 0.1% CREAM 15 GM TUBE TOP SCH (14:10)
[2020-02-02] MEDS: INSULIN GLARGINE 100 UNIT/ML SUBCUT SCH (16:55)
[2020-02-02] MEDS: ENOXAPARIN 30 MG/0.3 ML SYRINGE SUBCUT SCH (21:53)
[2020-02-02] MEDS: SIMVASTATIN 40 MG TABLET PO SCH (21:53)
[2020-02-03 05:33] LABS: Basophils % 0.1 % (0.0-0.8); Eosinophils # 0.1 10*3/uL (0.0-0.87); Eosinophils % 0.3 % (0.00-10.9); Hematocrit 32.5 VOL% (42.0-52.0); Hemoglobin 10.2 GM/DL (14.0-18.0); Immature Granulocytes % 1.1 %; Immature Granulocytes Absolute 0.22 #; Lymphocytes % 5.3 % (21.2-54.2); Mean Corpuscular HGB Conc 31.4 GM/DL (32-36); Mean Corpuscular Volume 80.6 FL (87-102); Mean Platelet Volume 10.4 FL (9.6-12.0); Monocytes % 3.8 % (1.7-12.7); Neutrophils % 89.4 % (38.7-73.9); Platelet Count 240 T/CUMM (130-400); Red Blood Count 4.03 MC/CUMM (3.8-5.5); Red Cell Distribution Width 17.8 % (9.3-17.3); White Blood Count 19.2 T/CUMM (4-12)
[2020-02-03] MEDS: LEVOTHYROXINE 125 MCG TABLET PO SCH (06:44)
[2020-02-03 06:46] LABS: Osmolality,Calculated 296.3 MOS/KG (273-304)
[2020-02-03] MEDS: FUROSEMIDE 40 MG/4 ML VIAL IV SCH ×2 (08:15→16:20)
[2020-02-03] MEDS: MENTHOL/ZINC OXIDE OINT 71 GM JAR TOP SCH ×2 (08:16→21:09)
[2020-02-03] MEDS: FLUTICASONE 50 MCG NASAL SPRAY 16 GM BOTTLE BOTH NARES SCH ×2 (08:16→21:09)
[2020-02-03] MEDS: INSULIN LISPRO 100 UNIT/ML SUBCUT SCH ×4 (08:16→21:09)
[2020-02-03] MEDS: DEXAMETHASONE 4 MG/1 ML VIAL IV SCH (08:16)
[2020-02-03] MEDS: BUDESONIDE/FORMOTEROL 80-4.5 INHALER 6.9 GM INH SCH ×2 (08:16→21:10)
[2020-02-03] MEDS: LORATADINE 10 MG TABLET PO SCH (08:17)
[2020-02-03] MEDS: CHOLECALCIFEROL 1,000 UNIT TABLET PO SCH (08:17)
[2020-02-03] MEDS: ASPIRIN CHEW 81 MG TABLET PO SCH (08:17)
[2020-02-03] MEDS: DOCUSATE SODIUM 100 MG CAPSULE PO SCH ×2 (08:17→22:15)
[2020-02-03] MEDS: carvediloL 3.125 MG TABLET PO SCH ×2 (08:17→16:20)
[2020-02-03] MEDS: FERROUS SULFATE 325 MG TABLET PO SCH ×2 (08:17→21:09)
[2020-02-03] MEDS: ZINC GLUCONATE 50 MG TABLET PO SCH (08:17)
[2020-02-03] MEDS: POTASSIUM CHLORIDE 10 MEQ TABLET PO SCH ×2 (08:17→21:10)
[2020-02-03] MEDS: ASCORBIC ACID 500 MG TABLET PO SCH (08:18)
[2020-02-03] MEDS: PANTOPRAZOLE 40 MG TABLET PO SCH (08:18)
[2020-02-03] MEDS: POTASSIUM CHLORIDE 20 MEQ TABLET PO PRN ×3 (08:18→16:20)
[2020-02-03] MEDS: INSULIN GLARGINE 100 UNIT/ML SUBCUT SCH (16:20)
[2020-02-03] MEDS: SIMVASTATIN 40 MG TABLET PO SCH (21:10)
[2020-02-03] MEDS: ENOXAPARIN 30 MG/0.3 ML SYRINGE SUBCUT SCH (21:10)
[2020-02-04] MEDS: LEVOTHYROXINE 125 MCG TABLET PO SCH (06:23)
[2020-02-04] MEDS: INSULIN LISPRO 100 UNIT/ML SUBCUT SCH ×4 (08:03→21:02)
[2020-02-04] MEDS: MENTHOL/ZINC OXIDE OINT 71 GM JAR TOP SCH ×2 (08:40→21:04)
[2020-02-04] MEDS: ASPIRIN CHEW 81 MG TABLET PO SCH (08:40)
[2020-02-04] MEDS: GENTAMICIN 0.1% CREAM 15 GM TUBE TOP SCH (08:40)
[2020-02-04] MEDS: ZINC GLUCONATE 50 MG TABLET PO SCH (08:40)
[2020-02-04] MEDS: DEXAMETHASONE 4 MG/1 ML VIAL IV SCH (08:40)
[2020-02-04] MEDS: ASCORBIC ACID 500 MG TABLET PO SCH (08:40)
[2020-02-04] MEDS: FERROUS SULFATE 325 MG TABLET PO SCH ×2 (08:40→21:02)
[2020-02-04] MEDS: FUROSEMIDE 40 MG/4 ML VIAL IV SCH ×2 (08:40→16:55)
[2020-02-04] MEDS: BUDESONIDE/FORMOTEROL 80-4.5 INHALER 6.9 GM INH SCH ×2 (08:40→21:05)
[2020-02-04] MEDS: DOCUSATE SODIUM 100 MG CAPSULE PO SCH ×3 (08:40→21:12)
[2020-02-04] MEDS: CHOLECALCIFEROL 1,000 UNIT TABLET PO SCH (08:40)
[2020-02-04] MEDS: LORATADINE 10 MG TABLET PO SCH (08:40)
[2020-02-04] MEDS: carvediloL 3.125 MG TABLET PO SCH ×2 (08:40→16:55)
[2020-02-04] MEDS: FLUTICASONE 50 MCG NASAL SPRAY 16 GM BOTTLE BOTH NARES SCH ×2 (08:40→21:04)
[2020-02-04] MEDS: PANTOPRAZOLE 40 MG TABLET PO SCH (08:40)
[2020-02-04] MEDS: POTASSIUM CHLORIDE 10 MEQ TABLET PO SCH ×2 (08:40→21:02)
[2020-02-04] MEDS: INSULIN GLARGINE 100 UNIT/ML SUBCUT SCH (16:55)
[2020-02-04] MEDS: ENOXAPARIN 40 MG/0.4 ML SYRINGE SUBCUT SCH (21:02)
[2020-02-04] MEDS: SIMVASTATIN 40 MG TABLET PO SCH (21:04)
[2020-02-05] MEDS: LEVOTHYROXINE 125 MCG TABLET PO SCH (06:30)
[2020-02-05 06:33] LABS: Basophils % 0.1 % (0.0-0.8); Hematocrit 35.9 VOL% (42.0-52.0); Hemoglobin 11.3 GM/DL (14.0-18.0); Immature Granulocytes % 1.3 %; Immature Granulocytes Absolute 0.25 #; Lymphocytes # 1.2 10*3/uL (1.4-4.0); Lymphocytes % 6.1 % (21.2-54.2); Mean Corpuscular HGB Conc 31.5 GM/DL (32-36); Mean Corpuscular Volume 80.5 FL (87-102); Mean Platelet Volume 11.1 FL (9.6-12.0); Monocytes % 5.4 % (1.7-12.7); Neutrophils % 87.1 % (38.7-73.9); Platelet Count 263 T/CUMM (130-400); Red Blood Count 4.46 MC/CUMM (3.8-5.5); Red Cell Distribution Width 17.8 % (9.3-17.3); White Blood Count 19.9 T/CUMM (4-12)
[2020-02-05 06:57] LABS: Bilirubin,Total 1.6 MG/DL (0.2-1.0); Calcium 8.2 MG/DL (8.5-10.1); Osmolality,Calculated 288.5 MOS/KG (273-304); Total Protein 6.8 G/DL (6.4-8.3)
[2020-02-05] MEDS: INSULIN LISPRO 100 UNIT/ML SUBCUT SCH ×4 (08:45→21:29)
[2020-02-05] MEDS: DEXAMETHASONE 4 MG/1 ML VIAL IV SCH (08:46)
[2020-02-05] MEDS: ZINC GLUCONATE 50 MG TABLET PO SCH (08:47)
[2020-02-05] MEDS: FUROSEMIDE 40 MG/4 ML VIAL IV SCH ×2 (08:47→16:30)
[2020-02-05] MEDS: BUDESONIDE/FORMOTEROL 80-4.5 INHALER 6.9 GM INH SCH ×2 (08:47→21:22)
[2020-02-05] MEDS: carvediloL 3.125 MG TABLET PO SCH ×2 (08:47→16:30)
[2020-02-05] MEDS: PANTOPRAZOLE 40 MG TABLET PO SCH (08:47)
[2020-02-05] MEDS: MENTHOL/ZINC OXIDE OINT 71 GM JAR TOP SCH ×2 (08:47→21:23)
[2020-02-05] MEDS: CHOLECALCIFEROL 1,000 UNIT TABLET PO SCH (08:47)
[2020-02-05] MEDS: ASCORBIC ACID 500 MG TABLET PO SCH (08:47)
[2020-02-05] MEDS: FERROUS SULFATE 325 MG TABLET PO SCH ×2 (08:47→21:20)
[2020-02-05] MEDS: FLUTICASONE 50 MCG NASAL SPRAY 16 GM BOTTLE BOTH NARES SCH ×2 (08:47→21:22)
[2020-02-05] MEDS: POTASSIUM CHLORIDE 10 MEQ TABLET PO SCH ×2 (08:47→21:20)
[2020-02-05] MEDS: ASPIRIN CHEW 81 MG TABLET PO SCH (08:47)
[2020-02-05] MEDS: DOCUSATE SODIUM 100 MG CAPSULE PO SCH ×2 (08:48→21:29)
[2020-02-05] MEDS: LORATADINE 10 MG TABLET PO SCH (08:48)
[2020-02-05] MEDS: INSULIN GLARGINE 100 UNIT/ML SUBCUT SCH (16:30)
[2020-02-05] MEDS: SIMVASTATIN 40 MG TABLET PO SCH (21:19)
[2020-02-05] MEDS: ENOXAPARIN 40 MG/0.4 ML SYRINGE SUBCUT SCH (21:20)
[2020-02-06] MEDS: LEVOTHYROXINE 125 MCG TABLET PO SCH (05:45)
[2020-02-06] MEDS ORDERED: ALBUMIN 25% 25 GM in PREMIX 1 EACH IV SCH (08:00)
[2020-02-06] MEDS: INSULIN LISPRO 100 UNIT/ML SUBCUT SCH ×4 (09:06→22:17)
[2020-02-06 09:24] LABS: Basophils % 0.1 % (0.0-0.8); Hematocrit 38.3 VOL% (42.0-52.0); Hemoglobin 12.1 GM/DL (14.0-18.0); Immature Granulocytes % 1.4 %; Immature Granulocytes Absolute 0.29 #; Lymphocytes # 1.2 10*3/uL (1.4-4.0); Lymphocytes % 6.1 % (21.2-54.2); Mean Corpuscular HGB Conc 31.6 GM/DL (32-36); Mean Corpuscular Volume 81.3 FL (87-102); Monocytes % 5.9 % (1.7-12.7); Neutrophils % 86.5 % (38.7-73.9); Platelet Count 322 T/CUMM (130-400); Red Blood Count 4.71 MC/CUMM (3.8-5.5); Red Cell Distribution Width 17.7 % (9.3-17.3); White Blood Count 20.5 T/CUMM (4-12)
[2020-02-06] MEDS: carvediloL 3.125 MG TABLET PO SCH ×2 (09:41→17:07)
[2020-02-06] MEDS: FERROUS SULFATE 325 MG TABLET PO SCH ×2 (09:41→22:17)
[2020-02-06] MEDS: DOCUSATE SODIUM 100 MG CAPSULE PO SCH ×2 (09:41→22:18)
[2020-02-06] MEDS: ASPIRIN CHEW 81 MG TABLET PO SCH (09:41)
[2020-02-06] MEDS: FLUTICASONE 50 MCG NASAL SPRAY 16 GM BOTTLE BOTH NARES SCH ×2 (09:41→22:28)
[2020-02-06] MEDS: MENTHOL/ZINC OXIDE OINT 71 GM JAR TOP SCH ×2 (09:41→22:16)
[2020-02-06] MEDS: LORATADINE 10 MG TABLET PO SCH (09:41)
[2020-02-06] MEDS: ZINC GLUCONATE 50 MG TABLET PO SCH (09:42)
[2020-02-06] MEDS: POTASSIUM CHLORIDE 10 MEQ TABLET PO SCH ×2 (09:42→22:18)
[2020-02-06] MEDS: CHOLECALCIFEROL 1,000 UNIT TABLET PO SCH (09:42)
[2020-02-06] MEDS: BUDESONIDE/FORMOTEROL 80-4.5 INHALER 6.9 GM INH SCH ×2 (09:42→22:18)
[2020-02-06] MEDS: ASCORBIC ACID 500 MG TABLET PO SCH (09:42)
[2020-02-06] MEDS: GENTAMICIN 0.1% CREAM 15 GM TUBE TOP SCH (09:42)
[2020-02-06] MEDS: PANTOPRAZOLE 40 MG TABLET PO SCH (09:42)
[2020-02-06] MEDS: DEXAMETHASONE 4 MG/1 ML VIAL IV SCH (09:43)
[2020-02-06] MEDS: FUROSEMIDE 40 MG/4 ML VIAL IV SCH (09:43)
[2020-02-06 09:48] LABS: Albumin 2.3 G/DL (3.4-5.0); Bilirubin,Total 1.4 MG/DL (0.2-1.0); Calcium 8.2 MG/DL (8.5-10.1); Osmolality,Calculated 286.1 MOS/KG (273-304)
[2020-02-06 10:03] LABS: Hypochromasia 1+; Lymphocytes 6 % (20-55); Platelet Estimate Adequate; Segmented Neutrophils 89 % (50-85); Total Cells Counted 100
[2020-02-06] MEDS: FUROSEMIDE 40 MG TABLET PO SCH (16:16)
[2020-02-06] MEDS: INSULIN GLARGINE 100 UNIT/ML SUBCUT SCH (17:06)
[2020-02-06] MEDS: ENOXAPARIN 40 MG/0.4 ML SYRINGE SUBCUT SCH (22:17)
[2020-02-07 05:36] LABS: Basophils % 0.1 % (0.0-0.8); Eosinophils # 0.1 10*3/uL (0.0-0.87); Eosinophils % 0.4 % (0.00-10.9); Hematocrit 35.1 VOL% (42.0-52.0); Hemoglobin 11.3 GM/DL (14.0-18.0); Immature Granulocytes % 0.9 %; Immature Granulocytes Absolute 0.15 #; Lymphocytes % 5.9 % (21.2-54.2); Mean Corpuscular HGB Conc 32.2 GM/DL (32-36); Mean Corpuscular Volume 80.1 FL (87-102); Mean Platelet Volume 10.9 FL (9.6-12.0); Neutrophils % 85.7 % (38.7-73.9); Platelet Count 228 T/CUMM (130-400); Red Blood Count 4.38 MC/CUMM (3.8-5.5); Red Cell Distribution Width 17.9 % (9.3-17.3); White Blood Count 16.1 T/CUMM (4-12)
[2020-02-07 06:04] LABS: Calcium 7.8 MG/DL (8.5-10.1); Osmolality,Calculated 289.5 MOS/KG (273-304); Total Protein 6.3 G/DL (6.4-8.3)
[2020-02-07] MEDS: LEVOTHYROXINE 125 MCG TABLET PO SCH (07:21)
[2020-02-07] MEDS: INSULIN LISPRO 100 UNIT/ML SUBCUT SCH ×2 (07:29→12:33)
[2020-02-07] MEDS ORDERED: DEXAMETHASONE 4 MG TABLET PO SCH (09:00)
[2020-02-07] MEDS: FERROUS SULFATE 325 MG TABLET PO SCH (09:08)
[2020-02-07] MEDS: carvediloL 3.125 MG TABLET PO SCH (09:08)
[2020-02-07] MEDS: DOCUSATE SODIUM 100 MG CAPSULE PO SCH (09:08)
[2020-02-07] MEDS: ASCORBIC ACID 500 MG TABLET PO SCH (09:08)
[2020-02-07] MEDS: CHOLECALCIFEROL 1,000 UNIT TABLET PO SCH (09:08)
[2020-02-07] MEDS: FUROSEMIDE 40 MG TABLET PO SCH (09:09)
[2020-02-07] MEDS: LORATADINE 10 MG TABLET PO SCH (09:09)
[2020-02-07] MEDS: POTASSIUM CHLORIDE 10 MEQ TABLET PO SCH (09:10)
[2020-02-07] MEDS: ZINC GLUCONATE 50 MG TABLET PO SCH (09:10)
[2020-02-07] MEDS: ASPIRIN CHEW 81 MG TABLET PO SCH (09:10)
[2020-02-07] MEDS: PANTOPRAZOLE 40 MG TABLET PO SCH (09:10)
[2020-02-07] MEDS: MENTHOL/ZINC OXIDE OINT 71 GM JAR TOP SCH (09:10)
[2020-02-07] MEDS: BUDESONIDE/FORMOTEROL 80-4.5 INHALER 6.9 GM INH SCH (09:11)
[2020-02-07] MEDS: FLUTICASONE 50 MCG NASAL SPRAY 16 GM BOTTLE BOTH NARES SCH (09:12)
[2020-02-07 11:24] VITALS: BP 128/69
== END 2020-02-07 12:15 | disposition swing bed (61) | DRG 444 ==
LOC: N.5E 10:20 → N.2E 01-22 23:37 → N.3E 02-06 15:04
PROVIDERS: ADMIT Internal Medicine; ATTEND Internal Medicine